=== PATIENT | female | born 1965 | race Caucasian/White ===

== ENCOUNTER 2019-12-07 11:53 | Outpatient (CLI) | payer MEDICARE, MEDICAID, SELFPAY ==
--- NOTE | 2019-12-07 12:08 | MM_ITS ---
WS: [id number] RIGHT DIGITAL MAMMOGRAPHY WITH CAD CLINICAL INFORMATION: LUMP RT BREAST COMPARISON: TECHNIQUE: 4 views of the right breast were obtained. FINDINGS: The right breast is composed of heterogeneous fibroglandular density tissue, which can limit the dete ction of small underlying mass lesions. Lucent centered calcifications. Palpable marker lower inner r ight breast. No mammographic abnormalities in this area. Ultrasound is pending. ULTRASOUND BREAST RIGHT TECHNIQUE: Ultrasound right breast focused area of concern. CLINICAL INFORMATION: LUMP RT BREAST COMPARISON: None. FINDINGS: Ultrasound right breast performed at the 3:00 position 3 cm from the nipple. No evidence of cystic or solid lesion in the area of palpable abnormality. No well-circumscribed lesions. No lesions to targe t for biopsy. Normal underlying breast tissue. MM/[place] [id number] IMPRESSION: BI-RADS: 2-Benign FOLLOW UP: 1 Year Follow-up Recommend return to annual screening mammography. Additional management of the palpable abnormality should be based on clinical g rounds.
== END 2019-12-07 11:54 | disposition home or self-care (01) ==
LOC: RADSHAW 12:03
PROVIDERS: Family Provider Nurse Practitioner Family; PCP Nurse Practitioner Family; Visit Provider Nurse Practitioner Family
DX: N63.14 Unspecified lump in the right breast, lower inner quadrant (principal)
CPT/HCPCS: 76642; 77065

== ENCOUNTER → 2020-01-26 11:08 | Outpatient (BNVA) | payer MEDICARE, MEDICAID, SELFPAY | PROVIDERS: Family Provider Nurse Practitioner Family; PCP Nurse Practitioner Family; Visit Provider Nurse Practitioner Family | DX: E03.8 Other specified hypothyroidism (principal) | CPT/HCPCS: 84443 ==

== ENCOUNTER → 2020-05-25 15:12 | Outpatient (BNVA) | payer MEDICARE, MEDICAID, SELFPAY | PROVIDERS: Family Provider Nurse Practitioner Family; PCP Nurse Practitioner Family; Visit Provider Nurse Practitioner Family | DX: I10 Essential (primary) hypertension (principal); E78.5 Hyperlipidemia, unspecified; E03.9 Hypothyroidism, unspecified; F41.9 Anxiety disorder, unspecified; J44.1 Chronic obstructive pulmonary disease with (acute) exacerbation | CPT/HCPCS: 80053; 80061; 84443; 85025 ==

== ENCOUNTER → 2020-11-28 09:08 | Outpatient (BNVA) | payer MEDICARE, MEDICAID, SELFPAY | PROVIDERS: Family Provider Nurse Practitioner Family; PCP Nurse Practitioner Family; Visit Provider Nurse Practitioner Family | DX: E03.9 Hypothyroidism, unspecified (principal); E78.5 Hyperlipidemia, unspecified; J44.9 Chronic obstructive pulmonary disease, unspecified | CPT/HCPCS: 80053; 80061; 84443; 85025 ==

== ENCOUNTER 2020-12-15 12:28 | Outpatient (CLI) | payer MEDICARE, MEDICAID, SELFPAY ==
[2020-12-15 13:14] LABS: Basophils # 0.2 10^3/uL (0.0-0.1); Basophils % 1.6 %; Eosinophils # 0.4 10^3/uL (0.0-0.8); Eosinophils % 2.8 %; Hematocrit 43.2 % (37.0-47.0); Lymphocytes # 3.7 10^3/uL (0.8-4.8); Lymphocytes % 29.2 %; Mean Corpuscular HGB Conc 34.7 g/dL (30.0-36.0); Mean Corpuscular Hemoglobin 33.7 pg (28.0-34.0); Mean Corpuscular Volume 97.1 fL (81-99); Mean Platelet Volume 9.3 fL (7.4-10.4); Monocytes % 8.2 %; Neutrophils # 7.25 10^3/uL (1.8-7.7); Nucleated Red Blood Cells % 0 %; Platelet Count 307 10^3/cmm (130-400); Red Blood Count 4.45 10^6/uL (4.1-5.3); Red Cell Distribution Width 11.9 % (12.1-15.1); White Blood Count 12.5 10^3/uL (4.0-10.0)
--- NOTE | 2020-12-16 09:22 | ONC CON_ITS ---
Dr. Santoro New Patient Note Patient: Vanessa Jimenez Unit #: [id number]: [id number] Dicatated By: Anna Santoro M.D.Date of Visit: Dec 15, 2020 Onc MED New Patient/Consult Referring Physician: Ayaz Fuentes History of Present Illness: Vanessa Jimenez, is a 55-year-old female with history of off and on elevated white blood count for 'some time' but recently did not improve and her labs checked on November 28, 2020 showed white blood count 14,000 hemoglobin 15.3 hematocrit 44.9 platelets 326,000 with elevated neutrophil count and mild eosinophilia as per patient she has severe COPD and has been taking prednisone 10 to 20 mg p.o. on as-needed basis for the last 3 years and usually end up taking once or twice a week and sometimes a week long course, depending how 'bad 'COPD is. And she is also on steroid-based inhaler Trelegy ( fluticasone) on daily basis. Patient is a chronic smoker, smoke 1 pack a day, also smoke marijuana and consume about 6 beers a day. Also has history of productive cough but no hemoptysis or hematemesis but sometimes postnasal discharge or so-called allergies. Denies any dysuria or hematuria, denies any night sweats, denies any drenching sweating or recurrent fever, denies any weight loss. Denies any abdominal fullness, denies any history of blood disorder in the past, denies any history of [id number] medication or herbs. Past Medical History: Ms. Jimenez's medical history consists of anxiety, chronic obstructive pulmonary disease, cor pulmonale, dyslipidemia, hypertension, hypothyroidism, left bundle branch block, and sleep apnea. Past Surgical History: There is no documented surgical history. Medications: Adult Aspirin EC Low Strength 1 Tablet (of 81 mg) Tablet, enteric coated Oral daily, Albuterol Sulfate HFA Aerosol, solution Inhalation, Cardizem CD 1 Capsule (of 240 mg) Capsule SR 24 HR Oral daily, Furosemide 1 Tablet (of 20 mg) Oral daily, Levothyroxine Sodium 1 Tablet (of 100 mcg) Oral daily, Montelukast Sodium 1 Tablet (of 10 mg) Oral daily, Mucinex Tablet SR 12 HR Oral, Potassium 1 Tablet (of 99 mg) Oral daily, Pravastatin Sodium 1 Tablet (of 20 mg) Oral daily, predniSONE Tablet Oral PRN, Super B Complex Maxi 1 Tablet Oral daily, Trelegy Ellipta Aerosol Powder, Breath Activated Inhalation Allergies: Amoxicillin, EPINEPHrine, and Penicillins. Social History: Ms. Jimenez is single. She is a daily smoker. She drinks daily. Pt states that she smokes a 6-pack of beer daily and smokes marijuana a few times weekly. Family History: There is no documented family history. Review Of Symptoms: Constitutional - Appetite is diminished and weight is stable. No fever or hot flashes. Energy level is fair. Positive for night sweats, ENMT - No sinus congestion/drainage. No mouth sores. No sore throat or difficulty swallowing, Hematologic/Lymphatic - Positive for easy bruising, Respiratory - Positive for shortness of breath and cough. No pleuritic pain or hemoptysis, Cardiovascular - No angina pain. No palpitations, Gastrointestinal - No nausea or vomiting. No heartburn or acid reflux. No diarrhea or constipation. No blood in the stool or black stools, Genitourinary (F) - No dysuria or hematuria. No urinary frequency. No urgency or incontinence, Musculoskeletal - No joint or bone pain, Neurologic - No headache or dizziness. No numbness or tingling. No other focal neurologic symptoms, Psychiatric - Positive for anxiety, no depression. No insomnia. Vital Signs: Performed on Dec 15, 2020 15:15: 0, 20.59, 1.50 sq.m, 62 in, 94 % (LOW), 102 /min (HIGH), 16 /min, 155/89 mm(hg) (HIGH), 98.7 F, and 112.6 lbs (HIGH). Performance Status: 1 - No physically strenuous activity, but ambulatory and able to carry out light or sedentary work (e.g. office work, light house work). (ECOG) Physical Examination: ENMT - No mouth sores, no thrush, no jaundice poor oral hygiene no peripheral lymphadenopathy, Respiratory - Poor air entry with bilateral mild wheezing, Cardiovascular - Regular rate and rhythm of heart, Abdomen - Soft, bowel sounds present, Extremities - No visible edema. Lab/Imaging: Most recent lab results are not available for this patient. Impression: Leukocytosis/neutrophilia etiology unclear but could be due to steroids, patient is on prednisone 10 to 20 mg p.o. once or twice a week for COPD and also on steroid-based inhaler (Trelegy )on regular basis. Or due to chronic inflammation/bronchitis due to chronic smoking or smoking or recurrent subclinical infection, or myeloproliferative disorder but less likely COPD, longstanding history of smoking still active Marijuana consumption Hypothyroidism Hypertension Plan: Discussed with patient regarding her labs white blood count 12.5 thousand, hemoglobin 15 g hematocrit 43.2 platelets 307,000 with a normal differential Clinically, patient is doing well with no signs symptoms suggestive of acute infection but clinically it appears patient has chronic bronchitis with productive white cough, no B symptoms, no peripheral lymphadenopathy or organomegaly. Repeat CBC shows her white blood count has improved and with normal differential and her hemoglobin and platelet count is within normal range Etiology of fluctuating leukocytosis is most likely due to off and on prednisone as well as regular use of steroid-based inhaler, other possibility could be chronic smoking as well as smoking-related chronic bronchitis causing reactive leukocytosis and or underlying myeloproliferative disorder cannot be ruled out but less likely. As her follow-up CBC shows improvement in her isolated leukocytosis and no sign of infections, patient was advised to hold her prednisone 2 weeks prior to her next visit in the month and avoid steroid containing inhaler if possible prior to her next visit and then we will repeat her CBC with differential and if it shows persistent leukocytosis, will consider whole blood flow cytometry to rule out myeloproliferative disorder. Patient was advised to quit smoking and was offered any assistance she may need. Signed By: Anna Santoro M.D. <<Signature on File>>
== END 2020-12-15 12:29 | disposition home or self-care (01) ==
LOC: ONCMED 12:32
PROVIDERS: Family Provider Nurse Practitioner Family; PCP Nurse Practitioner Family; Visit Provider Internal Medicine Hematology & Oncology
DX: D72.89 Other specified disorders of white blood cells (principal); J44.9 Chronic obstructive pulmonary disease, unspecified; F17.210 Nicotine dependence, cigarettes, uncomplicated; F12.90 Cannabis use, unspecified, uncomplicated; Z79.52 Long term (current) use of systemic steroids
CPT/HCPCS: 36415; 85025; 99204

== ENCOUNTER 2021-01-30 08:18 | Outpatient (CLI) | payer MEDICARE, MEDICAID, SELFPAY ==
[2021-01-30 08:51] LABS: Basophils # 0.1 10^3/uL (0.0-0.1); Basophils % 1.5 %; Eosinophils # 0.4 10^3/uL (0.0-0.8); Eosinophils % 4.8 %; Hematocrit 42.2 % (37.0-47.0); Hemoglobin 14.3 g/dL (11.5-15.3); Lymphocytes # 1.7 10^3/uL (0.8-4.8); Lymphocytes % 18.5 %; Mean Corpuscular HGB Conc 33.9 g/dL (30.0-36.0); Mean Corpuscular Hemoglobin 33.9 pg (28.0-34.0); Mean Platelet Volume 9.6 fL (7.4-10.4); Monocytes # 0.8 10^3/uL (0.2-0.9); Monocytes % 8.6 %; Neutrophils # 5.92 10^3/uL (1.8-7.7); Neutrophils % 66.2 %; Nucleated Red Blood Cells % 0 %; Platelet Count 246 10^3/cmm (130-400); Red Blood Count 4.22 10^6/uL (4.1-5.3); Red Cell Distribution Width 11.9 % (12.1-15.1); White Blood Count 8.9 10^3/uL (4.0-10.0)
--- NOTE | 2021-01-30 10:27 | ONC FU_ITS ---
Dr. Santoro follow up note Patient: Vanessa Jimenez Unit #: [id number]: 1965 Dicatated By: Anna Santoro M.D.Date of Visit:Jan 30, 2021 Onc Med Follow-up/Prog Note History of Present Illness: Vanessa Jimenez, is a 55-year-old female with history of off and on elevated white blood count for 'some time' but recently did not improve and her labs checked on November 28, 2020 showed white blood count 14,000 hemoglobin 15.3 hematocrit 44.9 platelets 326,000 with elevated neutrophil count and mild eosinophilia as per patient she has severe COPD and has been taking prednisone 10 to 20 mg p.o. on as-needed basis for the last 3 years and usually end up taking once or twice a week and sometimes a week long course, depending how 'bad 'COPD is. And she is also on steroid-based inhaler Trelegy ( fluticasone) on daily basis. Patient is a chronic smoker, smoke 1 pack a day, also smoke marijuana and consume about 6 beers a day. Also has history of productive cough but no hemoptysis or hematemesis but sometimes postnasal discharge or so-called allergies. Denies any dysuria or hematuria, denies any night sweats, denies any drenching sweating or recurrent fever, denies any weight loss. Denies any abdominal fullness, denies any history of blood disorder in the past, denies any history of ylzq-vco-bvcrjge medication or herbs. Came for follow-up, denies any specific complaints, no fever chills, no nausea or vomiting, no diarrhea or constipation, no sore throat, no sinus problem, no dysuria. As per patient she did not take steroids for last 1 week but this morning 1 dose because of progressive COPD and still smoking regularly. Medications: Adult Aspirin EC Low Strength 1 Tablet (of 81 mg) Tablet, enteric coated Oral daily, Albuterol Sulfate HFA Aerosol, solution Inhalation, Cardizem CD 1 Capsule (of 240 mg) Capsule SR 24 HR Oral daily, Furosemide 1 Tablet (of 20 mg) Oral daily, Levothyroxine Sodium 1 Tablet (of 100 mcg) Oral daily, Montelukast Sodium 1 Tablet (of 10 mg) Oral daily, Mucinex Tablet SR 12 HR Oral, Potassium 1 Tablet (of 99 mg) Oral daily, Pravastatin Sodium 1 Tablet (of 20 mg) Oral daily, predniSONE Tablet Oral PRN, Super B Complex Maxi 1 Tablet Oral daily, Trelegy Ellipta Aerosol Powder, Breath Activated Inhalation Allergies: Amoxicillin, EPINEPHrine, and Penicillins. Review of Systems: Review of Systems is not available for this patient. Vital Signs: Performed on Jan 30, 2021 10:01 Height - 62.00 in Weight - 115.6 lbs (HIGH) BSA - 1.51 sq.m BMI - 21.14 Temperature - 98.9 F (HIGH) Pulse - 79 /min Respiration - 20 /min BP - 146/84 mm(hg) (HIGH) O2 Sat - 96 % Pain - 0 Fatigue - 4 Performance Status: 0 - Fully active, able to carry on all predisease activities without restrictions. (ECOG) Physical Examination: ENMT - No mouth sores, no thrush, no jaundice, Respiratory - Poor air entry , With mild wheezing, Cardiovascular - Regular rate and rhythm of heart, Abdomen - Soft,bowel sounds present, Extremities - No visible edema. Lab/Imaging: Test performed on Dec 15, 2020 12:55 WBC 12.5 10 3/uL RBC 4.45 10 6/uL HGB 15.0 g/dL HCT 43.2 % MCV 97.1 fL MCH 33.7 pg MCHC 34.7 g/dL RDW 11.9 % Platelet Count 307 10 3/cmm MPV 9.3 fL Neutrophils 7.25 10 3/uL Lymphocytes 3.7 10 3/uL Monocytes 1.0 10 3/uL Eosinophils 0.4 10 3/uL Basophils 0.2 10 3/uL Neutrophil % 58.0 % Lymphocyte % 29.2 % Monocyte % 8.2 % Eosinophil % 2.8 % Basophils % 1.6 % NRBC % 0 % Impression: Leukocytosis/neutrophilia etiology unclear but could be due to steroids, patient is on prednisone 10 to 20 mg p.o. once or twice a week for COPD and also on steroid-based inhaler (Trelegy )on regular basis. Or due to chronic inflammation/bronchitis due to chronic smoking or smoking or recurrent subclinical infection, or myeloproliferative disorder but less likely COPD, longstanding history of smoking still active Marijuana consumption Hypothyroidism Hypertension Plan: Discussed with patient regarding her labs white blood count 8.9 hemoglobin 14.3 hematocrit 42.2 platelets 246,000 with a normal differential Clinically, patient is doing well with no new signs symptom suggestive of acute or chronic infection. Her follow-up labs shows resolution of leukocytosis and now CBC is in normal range. Patient was off steroid for the last 1 week except this morning when she took 1 dose of prednisone for COPD. Patient still smoking actively and she was advised to quit smoking and was offered any assistance she may need As far as leukocytosis concern, her follow-up CBC shows no abnormality so we will continue to monitor she return to clinic in 2 months and patient was advised to quit smoking as well as to avoid steroid for 1 week prior to her next visit with CBC with differential, if CBC stays within normal range then we will see her on as-needed basis Signed By: Anna Santoro M.D. <<Signature on File>>
== END 2021-01-30 08:19 | disposition home or self-care (01) ==
LOC: ONCMED 08:23
PROVIDERS: Family Provider Nurse Practitioner Family; PCP Nurse Practitioner Family; Visit Provider Internal Medicine Hematology & Oncology
DX: D72.829 Elevated white blood cell count, unspecified (principal); J44.9 Chronic obstructive pulmonary disease, unspecified; F17.210 Nicotine dependence, cigarettes, uncomplicated; F12.20 Cannabis dependence, uncomplicated; E03.9 Hypothyroidism, unspecified; I10 Essential (primary) hypertension; Z79.52 Long term (current) use of systemic steroids; Z79.899 Other long term (current) drug therapy
CPT/HCPCS: 36415; 85025; G0463

== ENCOUNTER → 2021-05-29 09:37 | Outpatient (BNVA) | payer MEDICARE, MEDICAID, SELFPAY | PROVIDERS: Family Provider Nurse Practitioner Family; PCP Nurse Practitioner Family; Visit Provider Nurse Practitioner Family | DX: I10 Essential (primary) hypertension (principal); E78.5 Hyperlipidemia, unspecified; E03.9 Hypothyroidism, unspecified; J44.9 Chronic obstructive pulmonary disease, unspecified | CPT/HCPCS: 80053; 80061; 84443; 85025 ==

== ENCOUNTER 2021-11-06 14:05 | Outpatient (CLI) | payer MEDICARE, MEDICAID, SELFPAY ==
--- NOTE | 2021-11-06 14:19 | CT_ITS ---
WS: [id number] LDCT LUNG CANCER SCREENING HISTORY: Nicotine Dependence TECHNIQUE: Axial imaging performed from the apices to 1 cm below the costophrenic angles. Coronal and sagittal reformats are submitted with axial MIP series. All CT scans at [facility] use at least one of these dose optimization techniques: automated exposure control; mA and/or kV adjustment per patient size (includes targeted exams where dose is matched to clinical indication); or iterativ e reconstruction. DLP: 54.19 mGy.cm DIvol: 1.58 mGy COMPARISON: 03/26/2019 and 01/09/2016 Diagnostic quality: Satisfactory Lung Nodules: LEFT upper lobe slightly spiculated noncalcified soft tissue nodule measures 7 mm in di ameter. This nodule was not present on 03/26/2019. No additional nodule or endobronchial lesion. Lungs: Pulmonary hyperexpansion from emphysema. Heart: Mildly enlarged heart. Other findings: Mildly prominent pulmonary artery. Atherosclerosis aorta. Thoracic scoliosis. CT/CT lung screening [id number] IMPRESSION: LUNG-RADS: 4A-Probably Suspicious FOLLOW UP: 3 Month LDCT OTHER FINDINGS (S MODIFIER): None.
== END 2021-11-06 14:06 | disposition home or self-care (01) ==
LOC: RAD 14:11
PROVIDERS: PCP Nurse Practitioner Family; Visit Provider Internal Medicine Critical Care Medicine
DX: Z12.2 Encounter for screening for malignant neoplasm of respiratory organs (principal); F17.210 Nicotine dependence, cigarettes, uncomplicated; I70.0 Atherosclerosis of aorta; M41.84 Other forms of scoliosis, thoracic region
CPT/HCPCS: 71271

== ENCOUNTER → 2021-11-28 15:39 | Outpatient (BNVA) | payer MEDICARE, MEDICAID, SELFPAY | PROVIDERS: PCP Nurse Practitioner Family; Visit Provider Nurse Practitioner Family | DX: J44.9 Chronic obstructive pulmonary disease, unspecified (principal); I10 Essential (primary) hypertension | CPT/HCPCS: 80053; 80061; 84443; 85025 ==

== ENCOUNTER 2022-02-05 09:36 | Outpatient (CLI) | payer MEDICARE, MEDICAID, SELFPAY ==
--- NOTE | 2022-02-05 10:30 | CT_ITS ---
WS: [id number] CT CHEST WITHOUT INTRAVENOUS CONTRAST HISTORY: f/u lung nodule TECHNIQUE: Contiguous 5 mm axial imaging performed on the thorax. Coronal and sagittal reformats are submitted. All CT scans at [facility] use at least one of these dose optimization techniques: automated exposure control; mA and/or kV adjustment per patient size (includes targeted exams where dose is matched to clinical indication); or iterative reconstruction. CONTRAST: None DLP: 321.22 mGy.cm COMPARISON: 11/06/2021 Lungs and central airway: Hyperinflated lungs from emphysema. Again noted is a slightly spiculated ro und nodule LEFT upper lobe measuring 7 mm. No increase in size since 11/06/2021. Spiculations are less apparent due to volume averaging. Benign calcifications RIGHT apex. No pneumonia. Pleura: Normal. No pleural effusion. Heart and pericardium: Normal size heart with no pericardial effusion. Mediastinum and kasia: No mediastinum or hilar adenopathy. Vessels: Mild atherosclerosis aorta. Pulmonary artery size is equal to the aorta. Chest wall and lower neck: No soft tissue masses. Upper abdomen: Negative. Osseous structures: No destructive process. CT/CT chest wo con [id number] IMPRESSION: 1. No change in a 7 mm nodule LEFT upper lobe as described on 11/06/2021. Mary nued close CT follow-up recommended as this is indeterminate but suspicious for early neoplasm. 2. No adenopathy. 3. Emphysema.
== END 2022-02-05 09:37 | disposition home or self-care (01) ==
PROVIDERS: PCP Nurse Practitioner Family; Visit Provider Internal Medicine Critical Care Medicine
DX: R91.1 Solitary pulmonary nodule (principal); J43.9 Emphysema, unspecified
CPT/HCPCS: 71250

== ENCOUNTER → 2022-02-08 14:05 | Outpatient (BNVA) | payer MEDICARE, MEDICAID, SELFPAY | PROVIDERS: PCP Nurse Practitioner Family; Visit Provider Internal Medicine Critical Care Medicine | DX: J44.9 Chronic obstructive pulmonary disease, unspecified (principal); R91.1 Solitary pulmonary nodule; F17.210 Nicotine dependence, cigarettes, uncomplicated | CPT/HCPCS: 99214 ==

== ENCOUNTER → 2022-05-31 10:57 | Outpatient (BNVA) | payer MEDICARE, MEDICAID, SELFPAY | PROVIDERS: PCP Nurse Practitioner Family; Visit Provider Nurse Practitioner Family | DX: E78.5 Hyperlipidemia, unspecified (principal); E03.9 Hypothyroidism, unspecified | CPT/HCPCS: 80053; 80061; 84443; 85025 ==

== ENCOUNTER → 2022-08-23 09:47 | Outpatient (BNVA) | payer MEDICARE, MEDICAID, SELFPAY | PROVIDERS: PCP Nurse Practitioner Family; Visit Provider Internal Medicine Critical Care Medicine | DX: J44.1 Chronic obstructive pulmonary disease with (acute) exacerbation (principal); R91.1 Solitary pulmonary nodule; F17.210 Nicotine dependence, cigarettes, uncomplicated; F41.1 Generalized anxiety disorder | CPT/HCPCS: 99214 ==

== ENCOUNTER 2022-09-05 15:01 | Outpatient (CLI) | payer MEDICARE, MEDICAID, SELFPAY ==
--- NOTE | 2022-09-05 15:30 | CT_ITS ---
WS: [id number] CT CHEST TECHNIQUE: Noncontrast CT of the chest with coronal and sagittal reformatted images. CLINICAL INFORMATION: Lung nodule COMPARISON: 02/05/22 DLP: 403.[address] scans at [facility] use at least one of these dose optimization techniques: automated e xposure control; mA and/or kV adjustment per patient size (includes targeted exams where dose is matc hed to clinical indication); or iterative reconstruction. FINDINGS: Previously described 7 mm nodule LEFT upper lobe is unchanged. Advanced chronic emphysematous changes . No acute pulmonary infiltrates. No focal pneumonia or pleural fluid. Normal caliber thoracic aorta. No mediastinal or hilar lymphadenopathy. No axillary lymphadenopathy. CT/CT chest wo con [id number] IMPRESSION: 1. Previously described 7 mm nodule LEFT upper lobe is unchanged since and 11/06/2021. Recommend 6 month follow-up. 2. Advanced chronic emphysematous changes. 3. No significant interval changes compared to previous.
== END 2022-09-05 15:02 | disposition home or self-care (01) ==
LOC: RAD 15:01
PROVIDERS: PCP Nurse Practitioner Family; Visit Provider Internal Medicine Critical Care Medicine
DX: R91.1 Solitary pulmonary nodule (principal); J43.9 Emphysema, unspecified
CPT/HCPCS: 71250

== ENCOUNTER → 2022-09-17 12:04 | Outpatient (BNVA) | payer MEDICARE, MEDICAID, SELFPAY | PROVIDERS: PCP Nurse Practitioner Family; Visit Provider Nurse Practitioner Family | DX: J44.1 Chronic obstructive pulmonary disease with (acute) exacerbation (principal) | CPT/HCPCS: 80053 ==

== ENCOUNTER → 2022-09-18 10:58 | Outpatient (BNVA) | payer MEDICARE, MEDICAID, SELFPAY | PROVIDERS: PCP Nurse Practitioner Family; Visit Provider Nurse Practitioner Family | DX: J44.1 Chronic obstructive pulmonary disease with (acute) exacerbation (principal) | CPT/HCPCS: 71046 ==

== ENCOUNTER → 2022-11-30 11:22 | Outpatient (BNVA) | payer MEDICARE, MEDICAID, SELFPAY | PROVIDERS: PCP Nurse Practitioner Family; Visit Provider Nurse Practitioner Family | DX: E78.5 Hyperlipidemia, unspecified (principal); J44.9 Chronic obstructive pulmonary disease, unspecified; I10 Essential (primary) hypertension; E03.9 Hypothyroidism, unspecified; Z23 Encounter for immunization; R91.1 Solitary pulmonary nodule | CPT/HCPCS: 80053; 80061; 84443; 85025 ==

== ENCOUNTER → 2022-12-11 12:03 | Outpatient (BNVA) | payer MEDICARE, MEDICAID, SELFPAY | PROVIDERS: PCP Nurse Practitioner Family; Visit Provider Internal Medicine Cardiovascular Disease | DX: J44.1 Chronic obstructive pulmonary disease with (acute) exacerbation (principal); R91.1 Solitary pulmonary nodule; F17.210 Nicotine dependence, cigarettes, uncomplicated; E78.5 Hyperlipidemia, unspecified; I10 Essential (primary) hypertension; G47.30 Sleep apnea, unspecified; I44.7 Left bundle-branch block, unspecified; I27.81 Cor pulmonale (chronic) | CPT/HCPCS: 99213 ==

== ENCOUNTER → 2023-02-25 10:37 | Outpatient (BNVA) | payer MEDICARE, MEDICAID, SELFPAY | PROVIDERS: PCP Nurse Practitioner Family; Visit Provider Internal Medicine Pulmonary Disease | DX: J44.9 Chronic obstructive pulmonary disease, unspecified (principal); R91.1 Solitary pulmonary nodule; F17.210 Nicotine dependence, cigarettes, uncomplicated; F41.1 Generalized anxiety disorder; Z79.52 Long term (current) use of systemic steroids | CPT/HCPCS: 99214 ==

== ENCOUNTER 2023-04-17 11:55 | Outpatient (CLI) | payer MEDICARE, MEDICAID, SELFPAY ==
--- NOTE | 2023-04-17 12:00 | CT_ITS ---
WS: [id number] CT chest wo con [id number] HISTORY: follow up lung nodule TECHNIQUE: Axial imaging performed through the thorax. Coronal and sagittal reformats are submitted. [facility] one of these dose optimization techniques: automated exposure control; mA and/or kV adjustment per patient size (includes targeted exams where dose is mat ched to clinical indication); or iterative reconstruction. CONTRAST: None DLP: 162.71 mGy.cm COMPARISON: 09/05/2022, 11/06/2021 Lungs and central airway: Moderate to severe hyperexpansion and chronic emphysema. Previously describ ed 6 mm nodule is reidentified in the LEFT upper lobe without interval change. There is a new spicula marni nodule with cavitation measuring 12 x 9 mm in the LEFT upper lobe. Short segment scar RIGHT upper lobe. Pleura: Normal. No pleural effusion. Heart and pericardium: Normal size heart with no pericardial effusion. Mediastinum and kasia: No mediastinum or hilar adenopathy. Vessels: Normal size aortic and pulmonary artery. No coronary artery calcifications. Chest wall and lower neck: No soft tissue masses. Upper abdomen: Small hiatal hernia. Scattered calcifications suprarenal aorta. Osseous structures: Increase in thoracic kyphosis. CT/CT chest wo con [id number] IMPRESSION: 1. New spiculated nodule with central cavitation measuring 12 x 9 mm in the LE FT upper lobe. Recommend short-term chest CT follow-up(3 months) versus PET CT imaging. 2. Previously described 6 mm noncalcified nodule LEFT upper lobe is stable sin ce 11/06/2021. 3. Severe chronic emphysema.
== END 2023-04-17 11:56 | disposition home or self-care (01) ==
LOC: RAD 12:01
PROVIDERS: PCP Nurse Practitioner Family; Visit Provider Internal Medicine Pulmonary Disease
DX: R91.1 Solitary pulmonary nodule (principal); F17.210 Nicotine dependence, cigarettes, uncomplicated; J43.9 Emphysema, unspecified
CPT/HCPCS: 71250

== ENCOUNTER 2023-05-18 05:48 | Outpatient (CLI) | payer MEDICARE, MEDICAID, SELFPAY ==
--- NOTE | 2023-05-18 10:00 | PETR_ITS ---
PROCEDURE INFORMATION: Exam: PET/CT Skull Base to Mid-thigh Exam date and time: 05/18/2023 10:20 AM Age: 58 years old Clinical indication: Abnormal findings; New spiculated nodule with central cavitation measuring 12 x 9 mm in the left upper lobe. Recommend short-term chest CT follow-up(3 months) versus pet CT imaging. ; Additional info: Lung nodule f/u lung cancer screening LABS AND CLINICAL REPORTS: Glucose: 106 mg/dl Treatment strategy for malignancy (PET staging): Initial Staging (PI) TECHNIQUE: Imaging protocol: Following at least four-hour fasting and following the injection of radiopharmaceutical, low dose CT images were obtained. Then, PET images were obtained. Attenuation corrected images were constructed using the CT scan. Fused images of PET and CT were reviewed. The standardized uptake values (SUV) reported below are maximum values within a region of interest, expressed in gm/ml. Exam includes orbital meatal line to mid-thigh. Radiopharmaceutical: 16.12 mCi F-18 FDG (Fluorodeoxyglucose), IV. Time of imaging post radiopharmaceutical administration: 1 hour Injection site: Left antecubital COMPARISON: CT chest con [id number] 04/17/2023 12:26 PM, CT chest 09/05/2022 FINDINGS: Brain: Visualized brain has normal physiologic uptake. Pharynx: No abnormal uptake. Larynx: No abnormal uptake. Lungs, pleura and trachea: A solid noncalcified slightly spiculated ovoid nodule in the left upper lobe measures 1.0 x 0.8 cm on series 3, image 38 without elevated uptake, SUV max 1.5. This nodule appears similar in size compared with 04/17/2023 however it no longer appears centrally necrotic. Similar solid anterior left upper lobe noncalcified 4 mm nodule on series 3, image 47. Similar right apical linear scarring. Diffuse moderate centrilobular emphysematous changes are noted. Heart: Normal physiologic uptake. Mediastinal space: No abnormal uptake. Liver: No abnormal uptake. Gallbladder and bile ducts: No abnormal uptake. Pancreas: No abnormal uptake. Spleen: No abnormal uptake. Adrenal glands: No abnormal uptake. Kidneys and ureters: Mild hydronephrosis is present on the right, and there is a suggestion of a lobulated region of abnormal soft tissue density involving the region of the right renal pelvis on series 3, image 92 measuring 2.5 x 2.3 cm. Uptake in this region is similar to that of adjacent urine within the intrarenal collecting system, SUV max 42.3. Stomach and bowel: A small rounded, approximately 1 cm diameter focus of elevated uptake is identified along the right lateral aspect of the distal sigmoid colon on series 4, image 125, SUV max 8.1, with the 2nd focus of more proximally located sigmoid colonic uptake on series 4, image 128, SUV max 5.0. No definite correlating lesions on the CT images are noted.There are scattered colonic diverticula. Vasculature: No abnormal uptake. Diffuse atherosclerotic changes are noted including within the coronary arteries. Lymph nodes: No abnormal uptake. No lymphadenopathy in the head, neck, chest, abdomen, pelvis, and extremities. Bones/joints: No abnormal uptake in the visualized axial and appendicular skeleton. There is mild diffuse vertebral body spondylosis. Soft tissues: No abnormal uptake in the visualized head, neck, chest, abdomen, pelvis, and extremities. METRICS: Mediastinal blood pool: SUV max 1.6 PET/[facility] INITIAL [id number] IMPRESSION: 1. A slightly spiculated solid nodule in the left upper lobe appears similar in size with interval resolution of central necrosis compared with 04/17/2023. Lack of uptake within this nodule favors a benign etiology. Consider 3 month follow-up CT for further surveillance. 2. Unchanged solid 4 mm left upper lobe nodule. 3. Centrilobular emphysematous changes. 4. Mild right hydronephrosis is noted, associated with a region of soft tissue density in the region of the right renal pelvis which demonstrates activity similar to that of adjacent urine in the intrarenal collecting system. Assessment of this region and the renal parenchyma is limited by PET-CT. The possibility of a neoplastic mass in this location or hyperdense of blood products or proteinaceous material in this region cannot be excluded. Consider dedicated multiphasic CT urography versus renal MRI with and without contrast for further evaluation. 5. Small foci of uptake in the sigmoid colon are noted which may be physiologic in nature although localized areas of inflammatory, infectious or neoplastic involvement cannot be excluded. 6. Colonic diverticulosis. 7. Additional nonurgent findings as detailed above.
== END 2023-05-18 05:49 | disposition home or self-care (01) ==
LOC: RAD 05-20 05:48
PROVIDERS: PCP Nurse Practitioner Family; Visit Provider Internal Medicine Pulmonary Disease
DX: Z12.2 Encounter for screening for malignant neoplasm of respiratory organs (principal); R91.1 Solitary pulmonary nodule; J44.1 Chronic obstructive pulmonary disease with (acute) exacerbation; N13.30 Unspecified hydronephrosis; N28.89 Other specified disorders of kidney and ureter; K57.30 Diverticulosis of large intestine without perforation or abscess without bleeding
CPT/HCPCS: 78815; A9552

== ENCOUNTER → 2023-06-07 11:52 | Outpatient (BNVA) | payer MEDICARE, MEDICAID, SELFPAY | PROVIDERS: PCP Nurse Practitioner Family; Visit Provider Nurse Practitioner Family | DX: E03.9 Hypothyroidism, unspecified (principal); F41.9 Anxiety disorder, unspecified; E78.5 Hyperlipidemia, unspecified; I10 Essential (primary) hypertension; J44.9 Chronic obstructive pulmonary disease, unspecified; J44.1 Chronic obstructive pulmonary disease with (acute) exacerbation; Z12.31 Encounter for screening mammogram for malignant neoplasm of breast; Z13.820 Encounter for screening for osteoporosis; Z23 Encounter for immunization | CPT/HCPCS: 80053; 80061; 84443 ==

== ENCOUNTER 2023-06-20 13:18 | Outpatient (CLI) | payer MEDICARE, MEDICAID, SELFPAY ==
--- NOTE | 2023-06-20 13:44 | XR_ITS ---
WS: [id number] DEXA (DUAL ENERGY X-RAY ABSORPTIOMETRY) Bone mineral density was performed using a [employer] machine. HISTORY: SCREENING COMPARISON: None available. Lumbar spine BMD (L1-L4): 0.878 g/cm2 T score: -2.5 Z score: -0.6 Total hip BMD: Left: 0.625 g/cm2. T score: -3.0 Z score: -1.6 Right: 0.609 g/cm2. T score: -3.2 Z score: -1.7 10 year probability of a major osteoporotic fracture is 32.2%. XR/XR DEXA axial skeleton* [id number] IMPRESSION: OSTEOPOROSIS based upon the WHO classification for females.
--- NOTE | 2023-06-20 13:45 | MM_ITS ---
WS: [id number] VIEWS: MLO and CC views both breasts. 3D digital tomosynthesis is also included in this exam. Comparison made with prior exam of 01/04/2014. A 09/20/2015. 12/27/2017. 05/19/2019. 12/07/2019.. Findings: There was no sign of mass, architectural distortion or suspicious calcification in either breast. Th e breasts are extremely dense which lowers the sensitivity of mammography. MM/[place] [id number] Impression: BI-RADS: 2-Benign finding. FOLLOW-UP: 1 Year Follow-up This mammogram was also analyzed by the Computer Aided Detection System R2 Imag e Contour Path Tape Mill Operator.
== END 2023-06-20 13:19 | disposition home or self-care (01) ==
LOC: RAD 13:20
PROVIDERS: PCP Nurse Practitioner Family; Visit Provider Nurse Practitioner Family
DX: Z12.31 Encounter for screening mammogram for malignant neoplasm of breast (principal); Z13.820 Encounter for screening for osteoporosis; M81.0 Age-related osteoporosis without current pathological fracture
CPT/HCPCS: 77063; 77067; 77080

== ENCOUNTER 2023-08-02 11:33 | Outpatient (CLI) | payer MEDICARE, MEDICAID, SELFPAY ==
--- NOTE | 2023-08-02 12:00 | CT_ITS ---
WS: [id number] CT chest wo con [id number] HISTORY: lung nodule TECHNIQUE: Axial imaging performed through the thorax. Coronal and sagittal reformats are submitted. All CT scans at [facility] use at least one of these dose optimization techniques: automated exposure control; mA and/or kV adjustment per patient size (includes targeted exams where dose is mat ched to clinical indication); or iterative reconstruction. CONTRAST: None DLP: 160.90 mGy.cm COMPARISON: 04/17/2023 and 09/05/2022 Lungs and central airway: Severe centrilobular emphysema. New subsolid opacification in the RIGHT upp er lobe extends towards the hilum. There is bronchial wall thickening and mild bronchiectasis. These findings are new since 04/17/2023. Previously described cavitary nodule in the central LEFT upper lobe measures 8.2 mm. Nodule is less cavitary and more solid than on the prior study. Stable 5 mm LEFT up per lobe nodule. Pleura: Normal. No pleural effusion. Heart and pericardium: Normal size heart with no pericardial effusion. Mediastinum and kasia: No adenopathy identified on this examination without IV contrast. Vessels: Mild atherosclerosis aorta. Normal sized pulmonary artery. Chest wall and lower neck: No soft tissue masses. Upper abdomen: Suprarenal atherosclerotic plaque within the aorta. Osseous structures: Mild increase in thoracic kyphosis. IMPRESSION: 1. New subsolid consolidation involving the RIGHT upper lobe. Bronchial wall thickening with bronchie ctasis is now present in the RIGHT upper lobe. This is most consistent with acute pneumonia. 2. Cavitary nodule previously described in the LEFT upper lobe has become more consolidated now measu ring 8.2 mm. Recommend continued close imaging evaluation. Neoplasm is not excluded. Follow-up chest CT in 3 months. 3. Stable 5 mm nodule LEFT upper lobe. 4. Severe centrilobular emphysema.
== END 2023-08-02 11:34 | disposition home or self-care (01) ==
PROVIDERS: PCP Nurse Practitioner Family; Visit Provider Internal Medicine Pulmonary Disease
DX: R91.8 Other nonspecific abnormal finding of lung field (principal); J43.2 Centrilobular emphysema
CPT/HCPCS: 71250

== ENCOUNTER → 2023-12-11 14:16 | Outpatient (BNVA) | payer MEDICARE, MEDICAID, SELFPAY | PROVIDERS: PCP Nurse Practitioner Family; Visit Provider Nurse Practitioner Family | DX: E78.5 Hyperlipidemia, unspecified (principal); E03.9 Hypothyroidism, unspecified; I10 Essential (primary) hypertension; J44.9 Chronic obstructive pulmonary disease, unspecified; J44.1 Chronic obstructive pulmonary disease with (acute) exacerbation; M81.0 Age-related osteoporosis without current pathological fracture | CPT/HCPCS: 80053; 80061; 84443; 85025 ==

== ENCOUNTER → 2023-12-31 10:45 | Outpatient (BNVA) | payer MEDICARE, MEDICAID, SELFPAY | PROVIDERS: PCP Nurse Practitioner Family; Visit Provider Nurse Practitioner Family | DX: J44.1 Chronic obstructive pulmonary disease with (acute) exacerbation (principal); D64.9 Anemia, unspecified | CPT/HCPCS: 82607; 82746; 85025 ==

== ENCOUNTER → 2024-06-12 10:43 | Outpatient (BNVA) | payer MEDICARE, MEDICAID, SELFPAY | PROVIDERS: PCP Nurse Practitioner Family; Visit Provider Nurse Practitioner Family | DX: E78.5 Hyperlipidemia, unspecified (principal); J44.9 Chronic obstructive pulmonary disease, unspecified | CPT/HCPCS: 80053; 80061; 84443; 85025 ==

== ENCOUNTER 2024-07-14 13:33 | Outpatient (CLI) | payer MEDICARE, MEDICAID, SELFPAY ==
--- NOTE | 2024-07-14 13:40 | MM_ITS ---
WS: [id number] BILATERAL 3D TOMOSYNTHESIS DIGITAL SCREENING MAMMOGRAM WITH CAD CLINICAL INFORMATION: Z12.39 - Encounter for other screening for malignant neop... HISTORY: Screening mammogram. No current complaints. COMPARISON: 2022 TECHNIQUE: Bilateral CC and MLO. FINDINGS: The breast are composed of extremely dense tissue, which can limit the detection of small underlying mass lesions. No suspicious focal mass, asymmetry, calcifications, or architectural distortion. No ev idence of malignancy. Incidental punctate and lucent centered calcifications. MM/[place] [id number] IMPRESSION: BI-RADS: 2-Benign FOLLOW UP: 1 Year Follow-up Recommend return to annual screening mammography.
== END 2024-07-14 13:34 | disposition home or self-care (01) ==
LOC: MOBLMAM 13:39
PROVIDERS: PCP Nurse Practitioner Family; Visit Provider Nurse Practitioner Family
DX: Z12.31 Encounter for screening mammogram for malignant neoplasm of breast (principal); R92.343 Mammographic extreme density, bilateral breasts
CPT/HCPCS: 77063; 77067; 82607; 82746

== ENCOUNTER 2024-11-26 13:16 | Inpatient (IN) | payer MEDICARE, MEDICAID, SELFPAY ==
[2024-11-26] VITALS (12 sets, daily range): BP systolic 113–133; BP diastolic 70–87; PULSE 80–109; RESP 16–28; TEMP 36.7–36.9; O2SAT 93–99; BMI 15.3
--- NOTE | 2024-11-26 13:23 | XRR_ITS ---
PROCEDURE INFORMATION: Exam: XR Chest Exam date and time: 11/26/2024 2:01 PM Age: 59 years old Clinical indication: Shortness of breath; Additional info: SOB TECHNIQUE: Imaging protocol: Radiologic exam of the chest. Views: 1 view. COMPARISON: CT chest con [id number] 08/02/2023 12:05 PM FINDINGS: Lungs: Emphysematous change with mild interstitial scarring and particularly right upper lobe. No consolidation. Pleural spaces: No pleural effusion or pneumothorax. Heart/Mediastinum: No significant cardiomegaly. Bones/joints: Visualized osseous structures show no acute abnormality. XR/XR chest 1V portable [id number] IMPRESSION: Emphysematous change with mild scarring, and particularly right upper lobe.
--- NOTE | 2024-11-26 13:31 | ECG_ITS ---
[employer] Test Date: 2024-11-26 Pat Name: Vanessa Jimenez Department: Room: Gender: Female Av Specialist: : 1965 Requested By: Antonio Mercedes Order Number: [id number] Catherine MD: Brock Godinez M.D. Measurements Intervals [place] Rate: 108 P: 85 CA: 188 QRS: 85 QRSD: 142 T: 265 QT: 356 QTc: 479 Interpretive Statements SINUS TACHYCARDIA WITH OCCASIONAL SUPRAVENTRICULAR PREMATURE COMPLEXES POSSIBLE RIGHT ATRIAL ENLARGEMENT [0.25mV P-WAVE] LEFT BUNDLE BRANCH BLOCK [120+ ms QRS DURATION, 80+ ms Q/S IN V1/V2, 85+ ms R IN I/aVL/V5/V6] No previous ECG available for comparison Electronically Signed On 11-27-2024 18:32:35 SEPTIC TANK INSTALLER by Brock Godinez M.D. [id number]
[2024-11-26 14:08] LABS: Basophils % 0.3 %; Eosinophils % 0.3 %; Hematocrit 41.3 % (36-47); Lymphocytes # 1.4 10^3/uL (0.8-4.8); Lymphocytes % 11.6 %; Mean Corpuscular HGB Conc 33.7 g/dL (30-55); Mean Corpuscular Hemoglobin 34.1 pg (27-33); Mean Corpuscular Volume 101.2 fl (85-98); Mean Platelet Volume 9.2 fL (7.4-10.4); Monocytes # 1.1 10^3/uL (0.2-0.9); Monocytes % 9.4 %; Neutrophils # 9.12 10^3/uL (1.8-7.7); Neutrophils % 77.9 %; Nucleated Red Blood Cells % 0 %; Platelet Count 312 10^3/cmm (157-399); Red Blood Count 4.08 10^6/uL (3.85-5.65); Red Cell Distribution Width 11.2 % (12.1-15.1); White Blood Count 11.72 10^3/uL (3.29-11.43)
[2024-11-26 14:34] LABS: Troponin(5th) Baseline 9 ng/L (0-10)
[2024-11-26 14:36] LABS: Alanine Aminotransferase 22 U/L (0-33); Albumin Level 3.6 g/dL (3.5-5.2); Alkaline Phosphatase 77 U/L (35-105); Anion Gap 15.2 (5-19); Aspartate Amino Transferase 29 U/L (0-32); Blood Urea Nitrogen 7 mg/dL (8-23); Calcium 9.2 mg/dL (8.5-10.5); Carbon Dioxide 34 mmol/L (22-29); Chloride 92 mmol/L (98-107); Creatinine Clr Calc Pharmacy 89.9631; Glomerular Filtration Rate 162.8 mL/min (90-130); Glucose 116 mg/dL (65-115); NT Pro B Type Natriuretic Pept 462 pg/mL (0-125); Osmolality Calculated 285 mOsm/kg (285-295); Potassium 3.2 mmol/L (3.5-5.1); Sodium 138 mmol/L (136-145); Total Bilirubin 0.2 mg/dL (0.15-1.2); Total Protein 6.6 g/dL (6.6-8.7)
[2024-11-26 14:41] LABS: Influenza A NEGATIVE (Negative); Influenza B NEGATIVE (Negative); Respiratory Syncytial Virus Ce NEGATIVE (Negative)
[2024-11-26 14:46] LABS: Covid PCR Positive (Negative)
[2024-11-26 14:52] LABS: Slide Review Slide Review Perform
[2024-11-26] MEDS: methylPREDNISolone sod succ 125 mg/2 mL INJ IVP (15:05)
--- NOTE | 2024-11-26 15:31 | ECG_ITS ---
[employer] Test Date: 2024-11-26 Pat Name: Vanessa Jimenez Department: Room: Gender: Female International Exchange Coordinator: : 1965 Requested By: Antonio Mercedes Order Number: [id number] Catherine MD: Brock Godinez M.D. Measurements Intervals [place] Rate: 84 P: 77 [place]: 180 QRS: 71 QRSD: 162 T: 46 QT: 415 QTc: 493 Interpretive Statements SINUS RHYTHM LEFT BUNDLE BRANCH BLOCK [120+ ms QRS DURATION, 80+ ms Q/S IN V1/V2, 85+ ms R IN I/aVL/V5/V6] Compared to ECG 11/26/2024 13:26:42 Sinus tachycardia no longer present Electronically Signed On 11-27-2024 18:39:54 SHOP SUPERINTENDENT by Brock Godinez M.D. [id number]
[2024-11-26] MEDS: potassium chloride ER 20 mEq Tablet 40 MEQ PO (15:57)
[2024-11-26 16:05] LABS: D Dimer 0.81 ug/mLFEU (0-0.59)
--- NOTE | 2024-11-26 16:08 | CTR_ITS ---
PROCEDURE INFORMATION: Exam: CTA Chest With Contrast Exam date and time: 11/26/2024 4:23 PM Age: 59 years old Clinical indication: Shortness of breath; Additional info: SOB TECHNIQUE: Imaging protocol: Computed tomographic angiography of the chest with contrast. Exam focused on the arteries. 3D rendering (Not supervised by radiologist): MIP and/or 3D reconstructed images were created by the technologist. Radiation optimization: All CT scans at this facility use at least one of these dose optimization techniques: automated exposure control; mA and/or kV adjustment per patient size (includes targeted exams where dose is matched to clinical indication); or iterative reconstruction. Contrast material: OMNIPAQUE 350; Contrast volume: 75 ml; Contrast route: INTRAVENOUS (IV); COMPARISON: CT angio chest PE protcl [id number] 12/01/2018 6:50 PM RADIATION DOSE METRICS: Total DLP (mGy-cm): 114.94 FINDINGS: Pulmonary arteries: No hypodense filling defect is seen within the pulmonary arteries or their branches to indicate pulmonary embolus. Aorta: Mild arteriosclerosis of the thoracic aorta without findings to indicate dissection or aneurysm. Lungs: Lung windows demonstrate emphysematous change with mild interstitial scarring bilaterally. An area of linear type opacity is seen right upper lobe with component of partial calcification with interval improvement in subsolid opacification in the right upper lobe from 2022 exam otherwise. Residual component of bronchial wall thickening and bronchiectasis. Significant interval decrease in size or improvement in left upper lobe nodule with prior exam of 2022 also suggested. Mild ill-defined focal opacity within the posterior mid to lower right lung is seen on the lung windows, new from 3 exam, as is small amount of ground-glass opacity within the posterior lower left lung. Consider superimposed infiltrate and follow-up with treatment, particularly mid to lower right lung. Pleural spaces: No pleural effusion or pneumothorax. Heart: No significant cardiomegaly. No pericardial effusion. Mild coronary artery calcification. Lymph nodes: Unremarkable. No enlarged lymph nodes. Bones/joints: Bone windows demonstrate mild spondylotic change thoracic spine. Soft tissues: Unremarkable. CT/CT angio chest PE protcl [id number] IMPRESSION: 1. No CT findings of pulmonary embolus. 2. Mild arteriosclerosis thoracic aorta and mild coronary artery calcification. 3. Emphysematous change with mild interstitial scarring and component of bronchial wall thickening/bronchiectasis. Predominant linear type scarring right upper lobe with interval decrease and improvement in subsolid opacification in the right upper lobe from 2022 exam. Significant interval decrease in size or improvement in left upper lobe nodule from prior exam as well. 4. Mild ill-defined focal opacity posterior mid to lower right lung and small amount of ground-glass opacity posterior lower left lung. Consider superimposed infiltrate and consider follow-up with treatment, particularly mid to lower right lung. COMMENTS: The presence of pulmonary emphysema on CT is an independent risk factor for lung cancer. In the absence of a history or active diagnosis of lung cancer, it is recommended that this patient with emphysema be evaluated for enrollment in a low dose CT lung cancer screening program.
--- NOTE | 2024-11-26 16:35 | ED_ITS ---
HPI - SOB/Dyspnea 2 General: Chief Complaint: Shortness of Breath/Dyspnea Stated Complaint: sob, low o2 Time Seen by Provider: 11/26/24 13:52 History of Present Illness: HPI Narrative: 59-year-old female with past medical his tory of COPD, uses supplemental O2 only at night He is presenting with 1 week history of shortness of breath, cough productive but unable to bring any mucus up, generalized weakness body aches no srinivas fever. Patient denies chest pain. No abdominal pain vomiting or diarrhea. Her is sick as well and he has recovered however she persistently is short of breath despite her albuterol treatments at home. Associated symptoms: Reports chest congestion; Deny abdominal pain, chest pain, extremity pain, fever(s), nausea, palpitations or vomiting Related Data Home Medications Medication Instructions Recorded Confirmed aspirin 81 mg tablet,delayed 81 mg PO DAILY 09/08/20 11/26/24 release (Adult Aspirin Regimen) B-complex with vitamin C 1 cap PO DAILY 12/11/22 11/26/24 guaifenesin 600 mg tablet, 600 mg PO BID PRN Cough 12/11/22 11/26/24 extended release 12 hr (Mucinex) albuterol sulfate 90 mcg/actuation 2 puff inhalation QID 11/26/24 11/26/24 aerosol inhaler (Ventolin HFA) Previous Rx's Medication Instructions Recorded diltiazem HCl 240 mg capsule,24 240 mg PO DAILY 30 days #30 caps 06/12/24 hr,extended release fluticasone fur. 100 mcg-umeclid 1 inh inhalation DAILY 30 days #28 06/12/24 62.5 mcg-vilant 25 mcg ea inhalat.powder (Trelegy Ellipta) furosemide 20 mg tablet 20 mg PO DAILY 30 days #30 tabs 06/12/24 ipratropium 0.5 mg-albuterol 3 mg 3 ml inhalation Q4H PRN wheezing 06/12/24 (2.5 mg base)/3 mL nebulization #180 mL soln levothyroxine 100 mcg tablet 100 mcg PO DAILY 30 days #30 tabs 06/12/24 (Synthroid) montelukast 10 mg tablet 10 mg PO DAILY 30 days #30 tabs 06/12/24 pravastatin 20 mg tablet 20 mg PO DAILY 30 days #30 tabs 07/12/24 raloxifene 60 mg tablet (Evista) 60 mg PO DAILY 90 days #90 tabs 06/12/24 prednisone 5 mg tablet 5 mg PO DAILY 90 days #90 tabs 06/19/24 Allergies Allergy/AdvReac Type Severity Reaction Status Date / Time amoxicillin Allergy Unknown Verified 11/26/24 13:24 epinephrine Allergy Unknown Verified 11/26/24 13:24 Penicillins Allergy Unknown Verified 11/26/24 13:24 Review of Systems 2 Const: Reports: chills and body aches; Denies: fever(s) Eyes: Denies: change in vision ENMT: Denies: throat pain Card: Denies: chest pain, palpitations or edema Resp: Reports: dyspnea, productive cough and chest congestion GI: Denies: abdominal pain, nausea, vomiting or diarrhea : Denies: flank pain or difficulty voiding Musc: Denies: back pain or extremity pain Skin/Breast: Denies: rash Neuro: Denies: headache(s) [place]/Lymph: Denies: easy bruising or easy bleeding PFSH ED 2 PFSH: Medical History (Updated 11/26/24 @ 17:15 by Nisha Wills MD) Anxiety Hypothyroidism Encounter for counseling for care management of patient with chronic conditions and complex health needs using nurse-based model Sleep apnea Left bundle branch block Cor pulmonale Essential hypertension COPD (chronic obstructive pulmonary disease) Environmental and seasonal allergies Anxiety Dyslipidemia Social History Smoking and tobacco/nicotine status: current every day tobacco/nicotine user cigarettes Packs smoked per day: 1 Years cigarettes smoked: 40 [ Other cigarette details: started at age 16] Alcohol intake: current Alcohol intake frequency: few times a month Substance/Drug Use: never Lives independently: Yes Housing: House Marital status: Single Marital status details: lives with significant other Current occupational status: disabled Current gender identity: Female Physical Exam 2 Narrative: EXAM NARRATIVE: Const: no acute distress, cooperative, well appearing HENMT: normocephalic, atraumatic, normal facial exam, posterior oropharynx normal w/ no tonsillar erythema or exudates Eye: Equal, round and reactive pupils present and EOMs intact bilaterally Neck/C-Spine: trachea midline, no stridor, no midline c spine tenderness , no paraspinal neck muscle tenderness Chest: no rib or chest wall tenderness Resp: Diffuse expiratory wheezing, mildly labored breathing, use of accessory muscles Cardio: COMMON NORMALS: regular rate and regular rhythm RATE: regular rate RHYTHM: regular rhythm GI: Normal to inspection, no tenderness, nondistended, normoactive bowel sounds present Extremity: COMMON NORMALS: no pedal edema Neuro: GCS 15, AO x 4, normal speech, CN intact, normal motor exam, normal sensory exam, no ataxia Psych: cooperative, appropriate mood and affect Skin: no rashes or lesions Course 2 Reevaluation(s): Reevaluation #1: Patient does feel improved with treatment, however still significant wheezing present, she is satting well on 2 L nasal cannula. Given her persistent wheezing will plan for inpatient admission for acute COPD and COVID treatment. Time: 16:38 Reevaluation #2: Case discussed with Dr. Gaviria who accepts admission and requests ABG to help direct dispo Vital Signs: Vital signs: Vital Signs Temperature 98.3 F 11/26/24 13:20 Pulse Rate 93 11/26/24 17:06 Respiratory Rate 25 H 11/26/24 17:06 Blood Pressure 130/75 11/26/24 17:06 Pulse Oximetry 95 11/26/24 17:06 Oxygen Delivery Me thod Nasal Cannula 11/26/24 17:06 Oxygen Flow Rate 2 11/26/24 17:06 MDM - SOB/Dyspnea Medical Decision Making Workup remarkable for chest x-ray no significant pneumonia, D-dimer mildly elevated will obtain CT of the chest to rule out PE, however presentation most consistent with acute COPD complicated by COVID infection. Patient is persistently wheezing despite treatments plan for inpatient admission. Lab Data 11/26/24 13:52 11/26/24 13:52 Labs/Radiology: Radiology Impressions Chest X-Ray 11/26/24 13:23 IMPRESSION: Emphysematous change with mild scarring, and particularly right upper lobe. Chest CTA 11/26/24 16:08 IMPRESSION: 1. No CT findings of pulmonary embolus. 2. Mild arteriosclerosis thoracic aorta and mild coronary artery calcification. 3. Emphysematous change with mild interstitial scarring and component of bronchial wall thickening/bronchiectasis. Predominant linear type scarring right upper lobe with interval decrease and improvement in subsolid opacification in the right upper lobe from 2022 exam. Significant interval decrease in size or improvement in left upper lobe nodule from prior exam as well. 4. Mild ill-defined focal opacity posterior mid to lower right lung and small amount of ground-glass opacity posterior lower left lung. Consider superimposed infiltrate and consider follow-up with treatment, particularly mid to lower right lung. COMMENTS: The presence of pulmonary emphysema on CT is an independent risk factor for lung cancer. In the absence of a history or active diagnosis of lung cancer, it is recommended that this patient with emphysema be evaluated for enrollment in a low dose CT lung cancer screening program. Laboratory Results WBC 11.72 10^3/uL (3.29-11.43) H 11/26/24 13:52 RBC 4.08 10^6/uL (3.85-5.65) 11/26/24 13:52 Hgb 13.90 g/dL (11.27-16.99) 11/26/24 13:52 Hct 41.3 % (36-47) 11/26/24 13:52 MCV 101.2 fl (85-98) H 11/26/24 13:52 MCH 34.1 pg (27-33) H 11/26/24 13:52 MCHC 33.7 g/dL (30-55) 11/26/24 13:52 RDW 11.2 % (12.1-15.1) L 11/26/24 13:52 Plt Count 312 10^3/cmm (157-399) 11/26/24 13:52 MPV 9.2 fL (7.4-10.4) 11/26/24 13:52 Neut % (Auto) 77.9 % 11/26/24 13:52 Lymph % (Auto) 11.6 % 11/26/24 13:52 [place] % (Auto) 9.4 % 11/26/24 13:52 Eos % (Auto) 0.3 % 11/26/24 13:52 Baso % (Auto) 0.3 % 11/26/24 13:52 Neut # (Auto) 9.12 10^3/uL (1.8-7.7) H 11/26/24 13:52 Lymph # (Auto) 1.4 10^3/uL (0.8-4.8) 11/26/24 13:52 [place] # (Auto) 1.1 10^3/uL (0.2-0.9) H 11/26/24 13:52 Eos # (Auto) 0.0 10^3/uL (0.0-0.8) 11/26/24 13:52 Baso # (Auto) 0.0 10^3/uL (0.0-0.1) 11/26/24 13:52 Nucleated RBC % (auto) 0 % 11/26/24 13:52 Nucleated RBCs # 0.0 /100WBC 11/26/24 13:52 D-Dimer 0.81 ug/mLFEU (0-0.59) H 11/26/24 13:52 Specimen Type Arterial 11/26/24 17:00 Sample Site Radial, right 11/26/24 17:00 ABG pH 7.47 (7.35-7.45) H 11/26/24 17:00 ABG pCO2 55.0 mmHg (35-45) H 11/26/24 17:00 ABG pO2 65.0 mmHg (80.0-100.0) L 11/26/24 17:00 ABG PO2/FiO2 Ratio 309 11/26/24 17:00 ABG HCO3 40.1 mmol/L (22-26) H 11/26/24 17:00 ABG Base Excess 13.9 mmol/L (-2.0-2.0) H 11/26/24 17:00 Fletcher Test Pos 11/26/24 17:00 Hematocrit 42.4 % (37-47) 11/26/24 17:00 O2 Delivery Device Room air 11/26/24 17:00 FiO2 21.0 % 11/26/24 17:00 Trumpet Player ID Julián 11/26/24 17:00 Sodium 138 mmol/L (136-145) 11/26/24 13:52 Potassium 3.2 mmol/L (3.5-5.1) L 11/26/24 13:52 Chloride 92 mmol/L (98-107) L 11/26/24 13:52 Carbon Dioxide 34 mmol/L (22-29) H 11/26/24 13:52 Anion Gap 15.2 (5-19) 11/26/24 13:52 BUN 7 mg/dL (8-23) L 11/26/24 13:52 Creatinine 0.4 mg/dL (0.5-0.9) L 11/26/24 13:52 GFR Calculation 162.8 mL/min (90-130) H 11/26/24 13:52 Glucose 116 mg/dL (65-115) H 11/26/24 13:52 Calculated Osmolality 285 mOsm/kg (285-295) 11/26/24 13:52 Calcium 9.2 mg/dL (8.5-10.5) 11/26/24 13:52 Total Bilirubin 0.2 mg/dL (0.15-1.2) 11/26/24 13:52 AST 29 U/L (0-32) 11/26/24 13:52 ALT 22 U/L (0-33) 11/26/24 13:52 Alkaline Phosphatase 77 U/L (35-105) 11/26/24 13:52 Troponin T Baseline 9 ng/L (0-10) 11/26/24 13:52 Troponin T 120 Minute 7.90 ng/L (0-10) 11/26/24 15:52 Delta Troponin T -1.10 ABS# (0-10) L 11/26/24 15:52 NT-Pro-B Natriuret Pep 462 pg/mL (0-125) H 11/26/24 13:52 Total Protein 6.6 g/dL (6.6-8.7) 11/26/24 13:52 Albumin 3.6 g/dL (3.5-5.2) 11/26/24 13:52 Globulin 3.0 g/dL (1.3-4.6) 11/26/24 13:52 Coronavirus (PCR) Positive (Negative) A 11/26/24 13:45 Influenza A (PCR) Negative (Negative) 11/26/24 13:45 Influenza Type B (PCR) Negative (Negative) 11/26/24 13:45 RSV (PCR) Negative (Negative) 11/26/24 13:45 All radiology interpretation(s) finalized by discharge ED provider radiology interpretation(s): CTA pending, however no PE as per my interpretation. Discharge Plan Discharge Patient Disposition: Admitted As Inpatient Clinical Impression: Acute exacerbation of chronic obstructive pulmonary disease, Pneumonia Condition: Stable Coding Level of Care Code ED Square Dance Caller for Adelaida Rodgers
[2024-11-26 17:11] LABS: ABG PH Result 7.47 (7.35-7.45); Arterial Blood Gas Hematocrit 42.4 % (37-47); Base Excess ABG 13.9 mmol/L (-2.0-2.0); Blood Gas Allen Test Pos; Blood Gas Operator Identificat WALCI; Blood Gas Sample Site Radial, right; Blood Gas Sample Type Arterial; HCO3 ABG 40.1 mmol/L (22-26); Oxygen Device ROOM AIR; PO2 FiO2 Ratio Arterial Blood 309
[2024-11-26] MEDS: ipratropium-albuterol 3 mL Neb INHALATION ×2 (17:21→23:35)
--- NOTE | 2024-11-26 17:54 | PM.HP ---
Providers/Chief Complaint Admitting Physician: Lucy Ward MD Primary Care Provider: JUANPABLO Fuentes Chief Complaint: sob, low o2 History of Present Illness Vanessa Jimenez is a 59 year old female with past medical history of COPD, known pulmonary nodules, anxiety disorder presenting to the hospital today for 1 week of increasing shortness of breath, increased cough, generalized bodyaches. She has been having significant wheezing which is not relieved by use of her typical medications at home. She was found to be COVID-positive. Significant wheezing noted to be persisting in the emergency room in spite of multiple treatments with albuterol and steroids. Admission is requested for persistent wheezing. Review of Systems General: Reports: 10 or more systems reviewed and unremarkable except in HPI and below Const: Denies: fever(s), chills or body aches Eyes: Denies: change in vision, blurry vision or photophobia ENMT: Reports: hoarseness; Denies: throat pain, enlarged tonsils, odynophagia or nasal congestion Card: Denies: chest pain, palpitations, irregular heart rhythm, edema, swelling of feet/ankles, lightheadedness, pre-syncope, dyspnea on exertion or orthopnea Resp: Denies: dyspnea, productive cough, non-productive cough, wheezing, stridor, pain on inspiration, change in phlegm color, hemoptysis or chest congestion GI: Denies: abdominal pain, nausea, vomiting, hematemesis, coffee ground emesis, dysphagia, heartburn, diarrhea, constipation, GI cramping, change in stool character, hematochezia or melena : Denies: flank pain, difficulty voiding, dysuria, urinary frequency, urinary urgency, urinary hesitancy or hematuria Musc: Denies: neck pain, back pain, extremity pain, joint swelling, joint warmth or deformity Neuro: Denies: headache(s), numbness in extremities, weakness in extremities, sensory changes, difficulty walking, frequent falls, dizziness, vertigo, behavioral changes, Slurred speech present or seizure-like activity Psych: Denies: anxiety, depression, suicidal ideation or homicidal ideation Endo: Denies: polyuria, polydipsia, tired all the time, cold intolerance or hot flashes [place]/Lymph: Denies: easy bruising or easy bleeding Medications/Allergies Home Medications Medication Instructions Recorded Confirmed Last Taken Type aspirin 81 mg tablet,delayed 81 mg PO DAILY 09/08/20 11/26/24 11/26/24 History release (Adult Aspirin Regimen) B-complex with vitamin C 1 cap PO DAILY 12/11/22 11/26/24 11/26/24 History guaifenesin 600 mg tablet, 600 mg PO BID PRN Cough 12/11/22 11/26/24 11/25/24 History extended release 12 hr (Mucinex) diltiazem HCl 240 mg capsule,24 240 mg PO DAILY 30 days #30 caps 06/12/24 11/26/24 11/26/24 Rx hr,extended release fluticasone fur. 100 mcg-umeclid 1 inh inhalation DAILY 30 days #28 06/12/24 11/26/24 11/26/24 Rx 62.5 mcg-vilant 25 mcg ea inhalat.powder (Trelegy Ellipta) furosemide 20 mg tablet 20 mg PO DAILY 30 days #30 tabs 06/12/24 11/26/24 11/26/24 Rx ipratropium 0.5 mg-albuterol 3 mg 3 ml inhalation Q4H PRN wheezing 06/12/24 11/26/24 11/26/24 Rx (2.5 mg base)/3 mL nebulization #180 mL soln levothyroxine 100 mcg tablet 100 mcg PO DAILY 30 days #30 tabs 06/12/24 11/26/24 11/26/24 Rx (Synthroid) montelukast 10 mg tablet 10 mg PO DAILY 30 days #30 tabs 06/12/24 11/26/24 11/26/24 Rx pravastatin 20 mg tablet 20 mg PO DAILY 30 days #30 tabs 06/12/24 11/26/24 11/26/24 Rx raloxifene 60 mg tablet (Evista) 60 mg PO DAILY 90 days #90 tabs 06/12/24 11/26/24 11/26/24 Rx prednisone 5 mg tablet 5 mg PO DAILY 90 days #90 tabs 06/19/24 11/26/24 11/26/24 Rx albuterol sulfate 90 mcg/actuation 2 puff inhalation QID 11/26/24 11/26/24 Unknown History aerosol inhaler (Ventolin HFA) Allergies Allergy/AdvReac Type Severity Reaction Status Date / Time amoxicillin Allergy Unknown Verified 11/26/24 13:24 epinephrine Allergy Unknown Verified 11/26/24 13:24 Penicillins Allergy Unknown Verified 11/26/24 13:24 PFSH Acute PFSH: Medical History (Updated 11/26/24 @ 17:56 by Lucy Ward MD) Anxiety Hypothyroidism Encounter for counseling for care management of patient with chronic conditions and complex health needs using nurse-based model Sleep apnea Left bundle branch block Cor pulmonale Essential hypertension COPD (chronic obstructive pulmonary disease) Environmental and seasonal allergies Anxiety Dyslipidemia Social History Smoking and tobacco/nicotine status: current every day tobacco/nicotine user cigarettes Packs smoked per day: 1 Years cigarettes smoked: 40 [ Other cigarette details: started at age 16] Alcohol intake: current Alcohol intake frequency: few times a month Substance/Drug Use: never Lives independently: Yes Housing: House Marital status: Single Marital status details: lives with significant other Current occupational status: disabled Current gender identity: Female Vitals/I&O/Wt Last Vital Signs Temp 98.3 F 11/26/24 13:20 Pulse 87 11/26/24 17:21 Resp 18 11/26/24 17:21 BP 130/75 11/26/24 17:06 Pulse Ox 93 11/26/24 17:21 O2 Del Method Room Air 11/26/24 17:21 O2 Flow Rate 2 11/26/24 17:06 Weight last 48 hrs Weight 38.102 kg Physical Exam Narrative: General: No acute distress, AO x3 cachexia, malnourished, BMI only 15. HEENT: PERRLA, pupils bilaterally equal and reactive, pallors not present Chest: Wheezing to auscultation bilaterally CVS: S1-S2 regular, no murmurs, no tachycardia, no gallops, no rubs Abdomen: Soft, nontender, no organomegaly, bowel sounds present Neuro: No focal deficits, no facial deformity, AO x3, power 5/5 in all limbs Data 11/26/24 13:52 11/26/24 13:52 Other Labs: Radiology Impressions Chest X-Ray 11/26/24 13:23 IMPRESSION: Emphysematous change with mild scarring, and particularly right upper lobe. Chest CTA 11/26/24 16:08 IMPRESSION: 1. No CT findings of pulmonary embolus. 2. Mild arteriosclerosis thoracic aorta and mild coronary artery calcification. 3. Emphysematous change with mild interstitial scarring and component of bronchial wall thickening/bronchiectasis. Predominant linear type scarring right upper lobe with interval decrease and improvement in subsolid opacification in the right upper lobe from 2022 exam. Significant interval decrease in size or improvement in left upper lobe nodule from prior exam as well. 4. Mild ill-defined focal opacity posterior mid to lower right lung and small amount of ground-glass opacity posterior lower left lung. Consider superimposed infiltrate and consider follow-up with treatment, particularly mid to lower right lung. COMMENTS: The presence of pulmonary emphysema on CT is an independent risk factor for lung cancer. In the absence of a history or active diagnosis of lung cancer, it is recommended that this patient with emphysema be evaluated for enrollment in a low dose CT lung cancer screening program. Laboratory Results WBC 11.72 10^3/uL (3.29-11.43) H 11/26/24 13:52 RBC 4.08 10^6/uL (3.85-5.65) 11/26/24 13:52 Hgb 13.90 g/dL (11.27-16.99) 11/26/24 13:52 Hct 41.3 % (36-47) 11/26/24 13:52 MCV 101.2 fl (85-98) H 11/26/24 13:52 MCH 34.1 pg (27-33) H 11/26/24 13:52 MCHC 33.7 g/dL (30-55) 11/26/24 13:52 RDW 11.2 % (12.1-15.1) L 11/26/24 13:52 Plt Count 312 10^3/cmm (157-399) 11/26/24 13:52 MPV 9.2 fL (7.4-10.4) 11/26/24 13:52 Neut % (Auto) 77.9 % 11/26/24 13:52 Lymph % (Auto) 11.6 % 11/26/24 13:52 Pershing % (Auto) 9.4 % 11/26/24 13:52 Eos % (Auto) 0.3 % 11/26/24 13:52 Baso % (Auto) 0.3 % 11/26/24 13:52 Neut # (Auto) 9.12 10^3/uL (1.8-7.7) H 11/26/24 13:52 Lymph # (Auto) 1.4 10^3/uL (0.8-4.8) 11/26/24 13:52 Pershing # (Auto) 1.1 10^3/uL (0.2-0.9) H 11/26/24 13:52 Eos # (Auto) 0.0 10^3/uL (0.0-0.8) 11/26/24 13:52 Baso # (Auto) 0.0 10^3/uL (0.0-0.1) 11/26/24 13:52 Nucleated RBC % (auto) 0 % 11/26/24 13:52 Nucleated RBCs # 0.0 /100WBC 11/26/24 13:52 D-Dimer 0.81 ug/mLFEU (0-0.59) H 11/26/24 13:52 Specimen Type Arterial 11/26/24 17:00 Sample Site Radial, right 11/26/24 17:00 ABG pH 7.47 (7.35-7.45) H 11/26/24 17:00 ABG pCO2 55.0 mmHg (35-45) H 11/26/24 17:00 ABG pO2 65.0 mmHg (80.0-100.0) L 11/26/24 17:00 ABG PO2/FiO2 Ratio 309 11/26/24 17:00 ABG HCO3 40.1 mmol/L (22-26) H 11/26/24 17:00 ABG Base Excess 13.9 mmol/L (-2.0-2.0) H 11/26/24 17:00 Fletcher Test Pos 11/26/24 17:00 Hematocrit 42.4 % (37-47) 11/26/24 17:00 O2 Delivery Device Room air 11/26/24 17:00 FiO2 21.0 % 11/26/24 17:00 Product Safety Technician ID Julián 11/26/24 17:00 Sodium 138 mmol/L (136-145) 11/26/24 13:52 Potassium 3.2 mmol/L (3.5-5.1) L 11/26/24 13:52 Chloride 92 mmol/L (98-107) L 11/26/24 13:52 Carbon Dioxide 34 mmol/L (22-29) H 11/26/24 13:52 Anion Gap 15.2 (5-19) 11/26/24 13:52 BUN 7 mg/dL (8-23) L 11/26/24 13:52 Creatinine 0.4 mg/dL (0.5-0.9) L 11/26/24 13:52 GFR Calculation 162.8 mL/min (90-130) H 11/26/24 13:52 Glucose 116 mg/dL (65-115) H 11/26/24 13:52 Calculated Osmolality 285 mOsm/kg (285-295) 11/26/24 13:52 Calcium 9.2 mg/dL (8.5-10.5) 11/26/24 13:52 Total Bilirubin 0.2 mg/dL (0.15-1.2) 11/26/24 13:52 AST 29 U/L (0-32) 11/26/24 13:52 ALT 22 U/L (0-33) 11/26/24 13:52 Alkaline Phosphatase 77 U/L (35-105) 11/26/24 13:52 Troponin T Baseline 9 ng/L (0-10) 11/26/24 13:52 Troponin T 120 Minute 7.90 ng/L (0-10) 11/26/24 15:52 Delta Troponin T -1.10 ABS# (0-10) L 11/26/24 15:52 NT-Pro-B Natriuret Pep 462 pg/mL (0-125) H 11/26/24 13:52 Total Protein 6.6 g/dL (6.6-8.7) 11/26/24 13:52 Albumin 3.6 g/dL (3.5-5.2) 11/26/24 13:52 Globulin 3.0 g/dL (1.3-4.6) 11/26/24 13:52 Coronavirus (PCR) Positive (Negative) A 11/26/24 13:45 Influenza A (PCR) Negative (Negative) 11/26/24 13:45 Influenza Type B (PCR) Negative (Negative) 11/26/24 13:45 RSV (PCR) Negative (Negative) 11/26/24 13:45 ABG Interpretation 1: 11/26/24 17:00 ABG pH 7.47 H ABG pCO2 55.0 H ABG pO2 65.0 L ABG HCO3 40.1 H ABG Base Excess 13.9 H A&P Assessment and plan (1) COVID-19: (2) Cor pulmonale: (3) Acute exacerbation of chronic obstructive pulmonary disease (COPD): Plan Admit to [facility] in observation Remdisivir 200mg iv x 1 followed by 100mg iv daily Methylprednisolone 40 mg IV every 8 hours duoneb q6h, budesonide q12h scheduled nebulization empiric levofloxacin Flutter valve/spirometer at bedside trend inflammatory markers including CRP CTA PE negative for PE Possible infiltrate for which patient has been started on empiric levofloxacin Sputum culture if able to expectorate Attestations Medical Necessity Statement*: Less than 2 midnight stay currently anticipated Coding Level of Care Code Acute Code for Chg Fwd Diagnoses COVID-19 U07.1 Cor pulmonale I27.81 Acute exacerbation of chronic obstructive pulmonary disease (COPD) J44.1
[2024-11-26] MEDS: levoFLOXacin 750 mg Tablet PO (18:28)
[2024-11-26] MEDS: enoxaparin 40 mg/0.4 mL Syringe SUBCUT (18:29)
[2024-11-26] MEDS: methylPREDNISolone sod succ 40 mg/mL INJ IVP (19:03)
[2024-11-26 20:28] LABS: Troponin 5 6HR 6.82 ng/L (0-10)
[2024-11-26 20:31] LABS: Troponin 5 6HR Delta -2.18 ng/L (0-12)
[2024-11-26] MEDS: remdesivir 200 MG in sodium chloride 0.9% (100 ml) 100 ML 100 MG IV (21:05)
[2024-11-26] MEDS: budesonide 0.5 mg/2 mL Neb INHALATION (23:35)
[2024-11-27] VITALS (13 sets, daily range): BP systolic 112–137; BP diastolic 66–77; PULSE 74–94; RESP 15–22; TEMP 36.8–37.1; O2SAT 93–98
[2024-11-27] MEDS: ipratropium-albuterol 3 mL Neb INHALATION ×4 (03:05→19:43)
[2024-11-27] MEDS: methylPREDNISolone sod succ 40 mg/mL INJ IVP ×2 (03:25→09:48)
[2024-11-27 06:38] LABS: Basophils % 0.2 %; Hematocrit 36.9 % (36-47); Lymphocytes % 15.1 %; Mean Corpuscular HGB Conc 34.1 g/dL (30-55); Mean Corpuscular Hemoglobin 34.9 pg (27-33); Mean Corpuscular Volume 102.2 fl (85-98); Monocytes # 0.2 10^3/uL (0.2-0.9); Monocytes % 2.9 %; Neutrophils # 5.35 10^3/uL (1.8-7.7); Neutrophils % 81.3 %; Nucleated Red Blood Cells % 0 %; Platelet Count 292 10^3/cmm (157-399); Red Blood Count 3.61 10^6/uL (3.85-5.65); Red Cell Distribution Width 11.2 % (12.1-15.1); White Blood Count 6.57 10^3/uL (3.29-11.43)
[2024-11-27 07:00] LABS: C Reactive Protein 44.2 mg/L (0.0-4.9)
[2024-11-27 07:02] LABS: Alanine Aminotransferase 22 U/L (0-33); Albumin Level 3.3 g/dL (3.5-5.2); Alkaline Phosphatase 69 U/L (35-105); Anion Gap 12.5 (5-19); Aspartate Amino Transferase 27 U/L (0-32); Blood Urea Nitrogen 9 mg/dL (8-23); Calcium 8.8 mg/dL (8.5-10.5); Carbon Dioxide 33 mmol/L (22-29); Chloride 95 mmol/L (98-107); Creatinine Clr Calc Pharmacy 117.0954; Globulin 2.7 g/dL (1.3-4.6); Glomerular Filtration Rate 226.9 mL/min (90-130); Glucose 160 mg/dL (65-115); Osmolality Calculated 286 mOsm/kg (285-295); Potassium 3.5 mmol/L (3.5-5.1); Sodium 137 mmol/L (136-145); Total Bilirubin 0.2 mg/dL (0.15-1.2)
[2024-11-27] MEDS: budesonide 0.5 mg/2 mL Neb INHALATION ×2 (08:07→19:44)
--- NOTE | 2024-11-27 09:02 | PC.CHAP ---
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 [] Patient/Family/Request visit [] Outpatient visit [] Follow-up visit [] Physician referral [] Code/Alert [] Routine visit [] Staff referral [] Actively dying [] Patient sleeping [] Family support [] [] Out of room [] Palliative care [] [] Receiving care in room [] Pre-surgical visit [] Trauma [] Long length of stay [] ICU visit [X] Other:Other: STOP See Nurse Relational/Emotional Strength [] Patient feels connected with others/family/visitors/staff [] Distress [] Loneliness/isolation [] Abandonment Spirituality of Patient [] Person of Sybil [] Attends Gnosticism of their Sybil [] Believes in Prayer [] Reads Bible or Amish materials [] There are Spiritual issues to be addressed Psychological Aide Interventions [] Prayer [] Active listening [] Non-anxious presence [] Spiritual/emotional support [] Crisis/trauma care [] Spiritual counseling [] Bereavement support [] Provided bereavement packet [] Provided Bible/devotional materials [] Provided toy/stuffed animal, coloring book to patient or family member [] Provided Communion [] Anointing/Y[place] [] Salvation [] Completed spiritual assessment [] Other: Impact on Illness or Injury [] Angry [] Fearful [] Anxious [] Often cries [] Exhaustion [] Unable to work [] Unable to attend denominational [] Unable to walk/stand [] Unable to read [] Unable to drive [] Unable to eat/drink [] Unable to sleep [] Unable to be with family [] Patient intubated [] Other: Summary Time spent with patient
--- NOTE | 2024-11-27 09:13 | PC.SOCIAL ---
IMM Update Pg. 2 of IMM updated and reviewed with patient, who verbalized understanding. Copy provided.
[2024-11-27] MEDS: atorvastatin 40 mg Tablet 20 MG PO (09:47)
[2024-11-27] MEDS: aspirin 81 mg EC Tablet PO (09:47)
[2024-11-27] MEDS: FUROsemide 20 mg Tablet PO (09:48)
[2024-11-27] MEDS: dilTIAZem ER (24HR) 240 mg Capsule PO (09:48)
[2024-11-27] MEDS: pantoprazole DR 40 mg Tablet PO (09:48)
[2024-11-27] MEDS: levoFLOXacin 750 mg Tablet PO (09:48)
[2024-11-27] MEDS: levothyroxine 100 mcg Tablet PO (09:48)
--- NOTE | 2024-11-27 14:16 | PM.PN ---
Subjective Subjective: Patient continues to have significant wheezing today. States she gets short of breath when walking to the bathroom and back. Medications: Reviewed: Yes Vitals/I&O/Wt Last Vital Signs Temp 98.7 F 11/27/24 12:00 Pulse 91 11/27/24 13:32 Resp 22 H 11/27/24 13:32 BP 137/71 11/27/24 12:00 Pulse Ox 93 11/27/24 13:32 O2 Del Method Nasal Cannula 11/27/24 13:32 O2 Flow Rate 2 11/27/24 13:32 11/26/24 11/27/24 11/27/24 22:59 06:59 14:59 Intake Total 120 / 120 320 / 440 240 / 240 Balance 120 / 120 320 / 440 240 / 240 Weight last 48 hrs Weight 37.195 kg Weight 38.102 kg Physical Exam Narrative: General: No acute distress, AO x3 cachexia, malnourished, BMI only 15. HEENT: PERRLA, pupils bilaterally equal and reactive, pallors not present Chest: Wheezing to auscultation bilaterally CVS: S1-S2 regular, no murmurs, no tachycardia, no gallops, no rubs Abdomen: Soft, nontender, no organomegaly, bowel sounds present Neuro: No focal deficits, no facial deformity, AO x3, power 5/5 in all limbs Data 11/27/24 06:24 11/27/24 06:24 A&P Assessment and plan (1) COVID-19: (2) Cor pulmonale: (3) Acute exacerbation of chronic obstructive pulmonary disease (COPD): Plan Admit to [facility] in observation Remdisivir 200mg iv x 1 followed by 100mg iv daily Methylprednisolone 40 mg IV every 8 hours duoneb q6h, budesonide q12h scheduled nebulization empiric levofloxacin Flutter valve/spirometer at bedside trend inflammatory markers including CRP CTA PE negative for PE Possible infiltrate for which patient has been started on empiric levofloxacin Sputum culture if able to expectorate 11/27/2024 patient continues to have significant wheezing today. Gets very short of breath and walking minimal distance from bed to the bathroom. Patient lives alone and with her level of respiratory compromise currently would not be safe to be discharged home alone. Will continue high-dose steroids. Increased from 40 mg every 8 hours to 80 mg every 8 hours. Continue scheduled nebulization. Continue antivirals. Add Tessalon for bouts of coughing. Attestations Medical Necessity Statement*: Continued admission for significant persisting wheezing. Coding Level of Care Code Acute Code for Chg Fwd Moderate MDM includes number and complexity of problems actively addressed during encounter, amount and/or complexity of data reviewed/ordered and described risk of complication, morbidity or mortality of management as documented Diagnoses COVID-19 U07.1 Cor pulmonale I27.81 Acute exacerbation of chronic obstructive pulmonary disease (COPD) J44.1
[2024-11-27] MEDS: methylPREDNISolone sod succ 125 mg/2 mL INJ 80 MG IVP ×2 (14:48→22:10)
[2024-11-27] MEDS: benzonatate 100 mg Capsule PO (14:48)
[2024-11-27] MEDS: enoxaparin 40 mg/0.4 mL Syringe SUBCUT (17:59)
[2024-11-27] MEDS: remdesivir 100 MG in sodium chloride 0.9% (100 ml) 100 ML IV (17:59)
[2024-11-28] VITALS (14 sets, daily range): BP systolic 102–150; BP diastolic 48–82; PULSE 79–104; RESP 16–22; TEMP 36.4–37.1; O2SAT 90–99
[2024-11-28] MEDS: ipratropium-albuterol 3 mL Neb INHALATION ×4 (02:30→19:58)
[2024-11-28 05:08] LABS: Basophils % 0.1 %; Hematocrit 33.8 % (36-47); Lymphocytes # 1.2 10^3/uL (0.8-4.8); Lymphocytes % 7.3 %; Mean Corpuscular HGB Conc 35.2 g/dL (30-55); Mean Corpuscular Hemoglobin 36.5 pg (27-33); Mean Corpuscular Volume 103.7 fl (85-98); Mean Platelet Volume 10.5 fL (7.4-10.4); Monocytes # 0.7 10^3/uL (0.2-0.9); Monocytes % 4.1 %; Neutrophils # 14.31 10^3/uL (1.8-7.7); Neutrophils % 87.9 %; Nucleated Red Blood Cells % 0 %; Platelet Count 285 10^3/cmm (157-399); Red Blood Count 3.26 10^6/uL (3.85-5.65); Red Cell Distribution Width 11.2 % (12.1-15.1); White Blood Count 16.28 10^3/uL (3.29-11.43)
[2024-11-28] MEDS: methylPREDNISolone sod succ 125 mg/2 mL INJ 80 MG IVP ×2 (05:22→13:40)
[2024-11-28 05:23] LABS: Alanine Aminotransferase 20 U/L (0-33); Albumin Level 3.3 g/dL (3.5-5.2); Alkaline Phosphatase 75 U/L (35-105); Anion Gap 11.1 (5-19); Aspartate Amino Transferase 24 U/L (0-32); Blood Urea Nitrogen 10 mg/dL (8-23); Calcium 8.7 mg/dL (8.5-10.5); Carbon Dioxide 36 mmol/L (22-29); Chloride 94 mmol/L (98-107); Creatinine Clr Calc Pharmacy 119.3243; Globulin 2.3 g/dL (1.3-4.6); Glomerular Filtration Rate 226.9 mL/min (90-130); Glucose 157 mg/dL (65-115); Osmolality Calculated 288 mOsm/kg (285-295); Potassium 3.1 mmol/L (3.5-5.1); Sodium 138 mmol/L (136-145); Total Bilirubin 0.2 mg/dL (0.15-1.2); Total Protein 5.6 g/dL (6.6-8.7)
[2024-11-28] MEDS: budesonide 0.5 mg/2 mL Neb INHALATION ×2 (08:36→19:58)
[2024-11-28] MEDS: pantoprazole DR 40 mg Tablet PO (09:03)
[2024-11-28] MEDS: levoFLOXacin 750 mg Tablet PO (09:03)
[2024-11-28] MEDS: atorvastatin 40 mg Tablet 20 MG PO (09:03)
[2024-11-28] MEDS: dilTIAZem ER (24HR) 240 mg Capsule PO (09:04)
[2024-11-28] MEDS: levothyroxine 100 mcg Tablet PO (09:04)
[2024-11-28] MEDS: aspirin 81 mg EC Tablet PO (09:04)
[2024-11-28] MEDS: FUROsemide 20 mg Tablet PO (09:04)
[2024-11-28] MEDS: potassium chloride ER 20 mEq Tablet PO (11:21)
[2024-11-28] MEDS: benzonatate 100 mg Capsule PO ×2 (13:45→22:18)
--- NOTE | 2024-11-28 14:54 | P.PN_ITS ---
Subjective 2 Subjective: Patient is better today. Still has some persistent wheezing on the right side but better compared to yesterday's exam. WBC up to 16,000. No fever. Suspect this is related to high-dose steroid use. Medications: Reviewed: Yes Vitals/I&O/Wt Last Vital Signs Temp 98 F 11/28/24 11:19 Pulse 79 11/28/24 14:00 Resp 22 H 11/28/24 13:51 BP 102/48 11/28/24 11:19 Pulse Ox 92 11/28/24 13:51 O2 Del Method Nasal Cannula 11/28/24 13:51 O2 Flow Rate 2 11/28/24 13:51 11/27/24 11/28/24 11/28/24 22:59 06:59 14:59 Intake Total 340 / 580 960 / 960 Balance 340 / 580 960 / 960 Weight last 48 hrs Weight 37.903 kg Weight 37.195 kg Physical Exam 2 Narrative: General: No acute distress, AO x3 cachexia, malnourished, BMI only 15. HEENT: PERRLA, pupils bilaterally equal and reactive, pallors not present Chest: Wheezing to auscultation bilaterally CVS: S1-S2 regular, no murmurs, no tachycardia, no gallops, no rubs Abdomen: Soft, nontender, no organomegaly, bowel sounds present Neuro: No focal deficits, no facial deformity, AO x3, power 5/5 in all limbs Data 11/28/24 04:11 11/28/24 04:11 Micro: Microbiology 11/26/24 23:20 Gram Stain - Final Sputum - Expectorated Sputum Sputum Culture - Preliminary A&P Assessment and plan (1) COVID-19: (2) Cor pulmonale: (3) Acute exacerbation of chronic obstructive pulmonary disease (COPD): Plan Admit to [facility] in observation Remdisivir 200mg iv x 1 followed by 100mg iv daily Methylprednisolone 40 mg IV every 8 hours duoneb q6h, budesonide q12h scheduled nebulization empiric levofloxacin Flutter valve/spirometer at bedside trend inflammatory markers including CRP CTA PE negative for PE Possible infiltrate for which patient has been started on empiric levofloxacin Sputum culture if able to expectorate 11/27/2024 patient continues to have significant wheezing today. Gets very short of breath and walking minimal distance from bed to the bathroom. Patient lives alone and with her level of respiratory compromise currently would not be safe to be discharged home alone. Will continue high-dose steroids. Increased from 40 mg every 8 hours to 80 mg every 8 hours. Continue scheduled nebulization. Continue antivirals. Add Tessalon for bouts of coughing. 11/28/2024 Patient is slightly better compared to yesterday's exam. Chiefly on the right side. White count up to 16,000. Suspect this is related to steroid use. Will check MRSA nasal screen in case needs additional coverage. Repeat chest x-ray. Trend CRP with a.m. labs. Transition IV to oral steroids and assess for any deterioration.Continue Remdisivir 100mg iv daily day 3 today. Attestations 2 Medical Necessity Statement*: transition iv to oral steroids, monitor for any worsening, check CXR Coding Level of Care Code Acute Code for Chg Fwd Moderate MDM includes number and complexity of problems actively addressed during encounter, amount and/or complexity of data reviewed/ordered and described risk of complication, morbidity or mortality of management as documented Diagnoses COVID-19 U07.1 Cor pulmonale I27.81 Acute exacerbation of chronic obstructive pulmonary disease (COPD) J44.1
--- NOTE | 2024-11-28 14:56 | XRR_ITS ---
PROCEDURE INFORMATION: Exam: XR Chest Exam date and time: 11/28/2024 4:57 PM Age: 59 years old Clinical indication: Condition or disease; Lung condition and disease; Pneumonia; Other: Unknown; Additional info: Follow up covid, assess for worsening pneumonia TECHNIQUE: Imaging protocol: Radiologic exam of the chest. Views: 1 view. COMPARISON: CT angio chest PE protcl [id number] 11/26/2024 4:23 PM FINDINGS: Lungs: Increased lung volumes. No lobar consolidation. Pleural spaces: No pleural effusion or pneumothorax. Heart/Mediastinum: Unremarkable. No cardiomegaly. Bones/joints: Unremarkable. XR/XR chest 1V portable [id number] IMPRESSION: As above.
[2024-11-28] MEDS: guaiFENesin 600 mg Tablet 1200 MG PO (17:05)
[2024-11-28] MEDS: enoxaparin 40 mg/0.4 mL Syringe SUBCUT (17:06)
[2024-11-28] MEDS: remdesivir 100 MG in sodium chloride 0.9% (100 ml) 100 ML IV (17:06)
[2024-11-28] MEDS: predniSONE 20 mg Tablet 40 MG PO (17:06)
[2024-11-28 18:53] LABS: MRSA PCR OZH (swab) NOT DETECTED (Not Detecte)
[2024-11-29] VITALS (10 sets, daily range): BP systolic 115–141; BP diastolic 70–81; PULSE 68–96; RESP 16–20; TEMP 36.7–37.1; O2SAT 88–99
[2024-11-29 05:22] LABS: Basophils % 0.1 %; Hematocrit 34.5 % (36-47); Lymphocytes # 1.1 10^3/uL (0.8-4.8); Lymphocytes % 7.8 %; Mean Corpuscular HGB Conc 34.5 g/dL (30-55); Mean Corpuscular Hemoglobin 35.2 pg (27-33); Mean Corpuscular Volume 102.1 fl (85-98); Mean Platelet Volume 8.9 fL (7.4-10.4); Monocytes # 0.8 10^3/uL (0.2-0.9); Monocytes % 5.3 %; Neutrophils # 12.21 10^3/uL (1.8-7.7); Neutrophils % 85.9 %; Nucleated Red Blood Cells % 0 %; Platelet Count 365 10^3/cmm (157-399); Red Blood Count 3.38 10^6/uL (3.85-5.65); Red Cell Distribution Width 11.3 % (12.1-15.1); White Blood Count 14.22 10^3/uL (3.29-11.43)
[2024-11-29 05:58] LABS: Alanine Aminotransferase 19 U/L (0-33); Albumin Level 3.2 g/dL (3.5-5.2); Alkaline Phosphatase 67 U/L (35-105); Anion Gap 9.6 (5-19); Aspartate Amino Transferase 19 U/L (0-32); Blood Urea Nitrogen 10 mg/dL (8-23); C Reactive Protein 13.8 mg/L (0.0-4.9); Calcium 8.6 mg/dL (8.5-10.5); Carbon Dioxide 38 mmol/L (22-29); Chloride 98 mmol/L (98-107); Creatinine Clr Calc Pharmacy 119.9507; Globulin 2.2 g/dL (1.3-4.6); Glomerular Filtration Rate 226.9 mL/min (90-130); Glucose 145 mg/dL (65-115); Osmolality Calculated 296 mOsm/kg (285-295); Potassium 3.6 mmol/L (3.5-5.1); Sodium 142 mmol/L (136-145); Total Bilirubin 0.2 mg/dL (0.15-1.2); Total Protein 5.4 g/dL (6.6-8.7)
[2024-11-29] MEDS: levoFLOXacin 750 mg Tablet PO (08:25)
[2024-11-29] MEDS: guaiFENesin 600 mg Tablet 1200 MG PO (08:25)
[2024-11-29] MEDS: pantoprazole DR 40 mg Tablet PO (08:25)
[2024-11-29] MEDS: dilTIAZem ER (24HR) 240 mg Capsule PO (08:25)
[2024-11-29] MEDS: predniSONE 20 mg Tablet 40 MG PO (08:25)
[2024-11-29] MEDS: aspirin 81 mg EC Tablet PO (08:26)
[2024-11-29] MEDS: FUROsemide 20 mg Tablet PO (08:26)
[2024-11-29] MEDS: levothyroxine 100 mcg Tablet PO (08:26)
[2024-11-29] MEDS: atorvastatin 40 mg Tablet 20 MG PO (08:26)
[2024-11-29] MEDS: benzonatate 100 mg Capsule PO (08:29)
[2024-11-29] MEDS: budesonide 0.5 mg/2 mL Neb INHALATION (09:26)
[2024-11-29] MEDS: ipratropium-albuterol 3 mL Neb INHALATION ×2 (09:26→14:13)
[2024-11-29] MEDS: remdesivir 100 MG in sodium chloride 0.9% (100 ml) 100 ML IV (13:57)
--- NOTE | 2024-11-29 15:45 | PM.DCS ---
Discharge Providers Date of Admission: 11/27/24 14:16 Date of Discharge: November 29, 2024 Attending Provider at Admission: Lucy Ward MD Attending Provider at Discharge: Lucy Ward MD Primary Care Provider: JUANPABLO Fuentes Diagnoses at Discharge Discharge Diagnosis (1) COVID-19: Status: Acute (2) Cor pulmonale: Status: Acute (3) Acute exacerbation of chronic obstructive pulmonary disease (COPD): Status: Acute Reason for Visit Reason for Visit: sob, low o2 Hospital Course Hospital Course Vanessa Jimeenz is a 59 year old female with past medical history of COPD, known pulmonary nodules, anxiety disorder presenting to the hospital for 1 week of increasing shortness of breath, increased cough, generalized bodyaches. She has been having significant wheezing which is not relieved by use of her typical medications at home. She was found to be COVID-positive. Significant wheezing noted to be persisting in the emergency room in spite of multiple treatments with albuterol and steroids. She was admitted to the hospital and started on treatment with IV remdesivir, high-dose steroids methylprednisolone 80 mg IV every 8 hours, [id number] nebulization with DuoNeb and budesonide and oral levofloxacin. She continued to have persistent wheezing over the first 2 days, however was feeling better today. She continues to have some scattered wheezing chiefly on her right lung but this does appear to be much better than before. Overall diagnosis is that of acute COPD exacerbation triggered by viral illness versus acute bronchitis from acute viral illness. Since she feels better today, on 2 L/min supplemental O2, she is being discharged with recommendations to continue high-dose steroid taper as instructed below, complete a course of oral levofloxacin over the next 2 days, continue to use her nebulizer with DuoNeb and budesonide over the next week.Home O2 eval was obtained. Typically patient uses only nighttime oxygen but is currently requiring continuous oxygen through the day. Physical Exam Narrative: General: No acute distress, AO x3 HEENT: PERRLA, pupils bilaterally equal and reactive, pallors not present Chest: Scattered wheezing right > left CVS: S1-S2 regular, no murmurs, no tachycardia, no gallops, no rubs Abdomen: Soft, nontender, no organomegaly, bowel sounds present Neuro: No focal deficits, no facial deformity, AO x3, power 5/5 in all limbs Discharge Data Studies Completed and Pending Completed Studies During Hospitalization Category Date Time Status CTA chest [CT angio chest PE protcl [id number]] Stat Cat Scan 11/26/24 16:08 Completed CXRP [XR chest 1V portable [id number]] Routine Exams 11/28/24 14:56 Completed XR chest 1V portable [id number] Stat Exams 11/26/24 13:23 Completed Radiology Impressions Chest CTA 11/26/24 16:08 IMPRESSION: 1. No CT findings of pulmonary embolus. 2. Mild arteriosclerosis thoracic aorta and mild coronary artery calcification. 3. Emphysematous change with mild interstitial scarring and component of bronchial wall thickening/bronchiectasis. Predominant linear type scarring right upper lobe with interval decrease and improvement in subsolid opacification in the right upper lobe from 2022 exam. Significant interval decrease in size or improvement in left upper lobe nodule from prior exam as well. 4. Mild ill-defined focal opacity posterior mid to lower right lung and small amount of ground-glass opacity posterior lower left lung. Consider superimposed infiltrate and consider follow-up with treatment, particularly mid to lower right lung. COMMENTS: The presence of pulmonary emphysema on CT is an independent risk factor for lung cancer. In the absence of a history or active diagnosis of lung cancer, it is recommended that this patient with emphysema be evaluated for enrollment in a low dose CT lung cancer screening program. Chest X-Ray 11/28/24 14:56 IMPRESSION: As above. Laboratory Results WBC 14.22 10^3/uL (3.29-11.43) H 11/29/24 04:56 RBC 3.38 10^6/uL (3.85-5.65) L 11/29/24 04:56 Hgb 11.90 g/dL (11.27-16.99) 11/29/24 04:56 Hct 34.5 % (36-47) L 11/29/24 04:56 MCV 102.1 fl (85-98) H 11/29/24 04:56 MCH 35.2 pg (27-33) H 11/29/24 04:56 MCHC 34.5 g/dL (30-55) 11/29/24 04:56 RDW 11.3 % (12.1-15.1) L 11/29/24 04:56 Plt Count 365 10^3/cmm (157-399) 11/29/24 04:56 MPV 8.9 fL (7.4-10.4) 11/29/24 04:56 Neut % (Auto) 85.9 % 11/29/24 04:56 Lymph % (Auto) 7.8 % 11/29/24 04:56 [place] % (Auto) 5.3 % 11/29/24 04:56 Eos % (Auto) 0.0 % 11/29/24 04:56 Baso % (Auto) 0.1 % 11/29/24 04:56 Neut # (Auto) 12.21 10^3/uL (1.8-7.7) H 11/29/24 04:56 Lymph # (Auto) 1.1 10^3/uL (0.8-4.8) 11/29/24 04:56 [place] # (Auto) 0.8 10^3/uL (0.2-0.9) 11/29/24 04:56 Eos # (Auto) 0.0 10^3/uL (0.0-0.8) 11/29/24 04:56 Baso # (Auto) 0.0 10^3/uL (0.0-0.1) 11/29/24 04:56 Nucleated RBC % (auto) 0 % 11/29/24 04:56 Nucleated RBCs # 0.0 /100WBC 11/29/24 04:56 D-Dimer 0.81 ug/mLFEU (0-0.59) H 11/26/24 13:52 Specimen Type Arterial 11/26/24 17:00 Sample Site Radial, right 11/26/24 17:00 ABG pH 7.47 (7.35-7.45) H 11/26/24 17:00 ABG pCO2 55.0 mmHg (35-45) H 11/26/24 17:00 ABG pO2 65.0 mmHg (80.0-100.0) L 11/26/24 17:00 ABG PO2/FiO2 Ratio 309 11/26/24 17:00 ABG HCO3 40.1 mmol/L (22-26) H 11/26/24 17:00 ABG Base Excess 13.9 mmol/L (-2.0-2.0) H 11/26/24 17:00 Fletcher Test Pos 11/26/24 17:00 Hematocrit 42.4 % (37-47) 11/26/24 17:00 O2 Delivery Device Room air 11/26/24 17:00 FiO2 21.0 % 11/26/24 17:00 Business Rules Developer ID [email or web address] 11/26/24 17:00 Sodium 142 mmol/L (136-145) 11/29/24 04:56 Potassium 3.6 mmol/L (3.5-5.1) 11/29/24 04:56 Chloride 98 mmol/L (98-107) 11/29/24 04:56 Carbon Dioxide 38 mmol/L (22-29) H 11/29/24 04:56 Anion Gap 9.6 (5-19) 11/29/24 04:56 BUN 10 mg/dL (8-23) 11/29/24 04:56 Creatinine 0.3 mg/dL (0.5-0.9) L 11/29/24 04:56 GFR Calculation 226.9 mL/min (90-130) H 11/29/24 04:56 Glucose 145 mg/dL (65-115) H 11/29/24 04:56 Calculated Osmolality 296 mOsm/kg (285-295) H 11/29/24 04:56 Calcium 8.6 mg/dL (8.5-10.5) 11/29/24 04:56 Total Bilirubin 0.2 mg/dL (0.15-1.2) 11/29/24 04:56 AST 19 U/L (0-32) 11/29/24 04:56 ALT 19 U/L (0-33) 11/29/24 04:56 Alkaline Phosphatase 67 U/L (35-105) 11/29/24 04:56 Troponin T Baseline 9 ng/L (0-10) 11/26/24 13:52 Troponin T 120 Minute 7.90 ng/L (0-10) 11/26/24 15:52 Delta Troponin T -1.10 ABS# (0-10) L 11/26/24 15:52 Troponin T Hi Sens 6Hr 6.82 ng/L (0-10) 11/26/24 20:04 Troponin T Hi Sens 6Hr Delta -2.18 ng/L (0-12) L 11/26/24 20:04 C-Reactive Protein 13.8 mg/L (0.0-4.9) H 11/29/24 04:56 NT-Pro-B Natriuret Pep 462 pg/mL (0-125) H 11/26/24 13:52 Total Protein 5.4 g/dL (6.6-8.7) L 11/29/24 04:56 Albumin 3.2 g/dL (3.5-5.2) L 11/29/24 04:56 Globulin 2.2 g/dL (1.3-4.6) 11/29/24 04:56 Nasal MRSA (PCR) Not detected (Not Detecte) 11/28/24 17:17 Coronavirus (PCR) Positive (Negative) A 11/26/24 13:45 Influenza A (PCR) Negative (Negative) 11/26/24 13:45 Influenza Type B (PCR) Negative (Negative) 11/26/24 13:45 RSV (PCR) Negative (Negative) 11/26/24 13:45 Vitals Last Vital Signs Temp 98.6 F 11/29/24 12:26 Pulse 84 11/29/24 14:00 Resp 20 H 11/29/24 14:00 BP 124/81 11/29/24 12:26 Pulse Ox 88 L 11/29/24 14:20 O2 Del Method Nasal Cannula 11/29/24 14:00 O2 Flow Rate 3 11/29/24 14:20 Discharge Plan Discharge Patient Disposition: Home Condition: Stable Prescriptions: New budesonide 0.5 mg/2 mL Suspension For Nebulization 0.5 mg inhalation BID.RESPIRATORY 15 Days Qty: 60 0RF levofloxacin 750 mg Tablet 750 mg PO DAILY 3 Days Qty: 3 0RF prednisone 10 mg tablet See Taper PO BID Qty: 42 0RF Taper: predniSONE 60-10 60 mg Daily for 2 Days and 0 Hour 50 mg Daily for 2 Days and 0 Hour 40 mg Daily for 2 Days and 0 Hour 30 mg Daily for 2 Days and 0 Hour 20 mg Daily for 2 Days and 0 Hour 10 mg Daily for 2 Days and 0 Hour pantoprazole [Protonix] 40 mg tablet,delayed release (DR/EC) 40 mg PO DAILY 28 Days Qty: 30 0RF Continued aspirin [Adult Aspirin Regimen] 81 mg tablet,delayed release (DR/EC) 81 mg PO DAILY B-complex with vitamin C Capsule 1 cap PO DAILY guaifenesin [Mucinex] 600 mg tablet extended release 12hr 600 mg PO BID PRN (Reason: Cough) raloxifene [Evista] 60 mg tablet 60 mg PO DAILY 90 Days Qty: 90 1RF pravastatin 20 mg tablet 20 mg PO DAILY 30 Days Qty: 30 5RF montelukast 10 mg tablet 10 mg PO DAILY 30 Days Qty: 30 5RF levothyroxine [Synthroid] 100 mcg tablet 100 mcg PO DAILY 30 Days Qty: 30 5RF furosemide 20 mg tablet 20 mg PO DAILY 30 Days Qty: 30 5RF Trelegy Ellipta 100-62.5-25 mcg blister with device 1 inh INHALATION DAILY 30 Days Qty: 28 5RF diltiazem HCl 240 mg capsule,extended release 24 hr 240 mg PO DAILY 30 Days Qty: 30 5RF albuterol sulfate [Ventolin HFA] 90 mcg/actuation HFA aerosol inhaler 2 puff INHALATION QID Changed ipratropium-albuterol 0.5 mg-3 mg(2.5 mg base)/3 mL solution for nebulization 3 ml inhalation Q4H Qty: 180 6RF Held prednisone 5 mg tablet 5 mg PO DAILY 90 Days Qty: 90 1RF Hold Instructions: Resume on 12/15/24. hold until you complete steroid taper Discharge Orders: Discharge Order (Routine); Ordered 11/29/24 Ordered By: Lucy Ward Referrals: Jo Hernandez FNP-C [Primary Care Provider] - 4-7 days (We have notified your physician's clinic of the need for a follow-up appointment to be scheduled. If you have not heard from them within the next 2 business days, please call them directly. ) Discharge Diet: Usual diet Discharge Activity: Resume usual activity Patient Instructions: Prednisone (By mouth), Levofloxacin (By mouth) (Levaquin, Levaquin Leva-kolby), Budesonide (By breathing), Pantoprazole (By mouth), Opioid Safety, Pneumonia Stoplight Discharge Attestations Time Spent in Discharge Care*: greater than 30 min Quality Metrics Clinical Quality Measures [ No reported AMI, CVA or VTE this stay] Coding Level of Care Code Acute Code for Chg Fwd Diagnoses COVID-19 U07.1 Cor pulmonale I27.81 Acute exacerbation of chronic obstructive pulmonary disease (COPD) J44.1
--- NOTE | 2024-11-29 16:40 | PC.NURSE ---
Dr. Ward called this nurse and stated that patient was discharging but wanted her to have 1830 dose of remdesivir early. After remdesivir was finished infusing, IV was removed. Discharge paperwork was discussed with patient. All questions were answered. Patient exited facility via wheelchair, escorted by this nurse and spouse at 1610.
== END 2024-11-29 16:10 | disposition home or self-care (01) | DRG 178 ==
LOC: ER 18:02 → MEDSURG 18:59
PROVIDERS: Emergency Medicine; Admitting Provider Student in an Organized Health Care Education/Training Program; Emergency Provider Emergency Medicine; PCP Nurse Practitioner Family; Visit Provider Student in an Organized Health Care Education/Training Program
DX: U07.1 COVID-19 (principal); J44.1 Chronic obstructive pulmonary disease with (acute) exacerbation; I27.81 Cor pulmonale (chronic); R91.8 Other nonspecific abnormal finding of lung field; J20.9 Acute bronchitis, unspecified; F17.210 Nicotine dependence, cigarettes, uncomplicated; E78.5 Hyperlipidemia, unspecified; I10 Essential (primary) hypertension; E03.9 Hypothyroidism, unspecified; Z79.82 Long term (current) use of aspirin
CPT/HCPCS: 36415; 36600; 71045; 71275; 80053; 82803; 83880; 84484; 85025; 85378; 86140; 87070; 87205; 87637; 93005; 94640; 94760; 96365; 96366; 96372; 96375; 99285; G0378; J0248; J1650; J2919; J7512; J7626; Q9967

== ENCOUNTER → 2024-12-07 11:37 | Outpatient (BNVA) | payer MEDICARE, MEDICAID, SELFPAY | PROVIDERS: PCP Nurse Practitioner Family; Visit Provider Clinical Nurse Specialist Adult Health | DX: E03.9 Hypothyroidism, unspecified (principal); E78.5 Hyperlipidemia, unspecified; J44.9 Chronic obstructive pulmonary disease, unspecified | CPT/HCPCS: 80053; 80061; 84443; 85025 ==

== ENCOUNTER → 2024-12-14 15:00 | Outpatient (BNVA) | payer MEDICARE, MEDICAID, SELFPAY | PROVIDERS: PCP Nurse Practitioner Family; Visit Provider Clinical Nurse Specialist Adult Health | DX: D72.829 Elevated white blood cell count, unspecified (principal) | CPT/HCPCS: 85025 ==

== ENCOUNTER 2024-12-18 13:03 | Outpatient (CLI) | payer MEDICARE, MEDICAID, SELFPAY ==
--- NOTE | 2024-12-18 13:00 | MR_ITS ---
WS: [id number] MRI ABDOMEN WITH AND WITHOUT CONTRAST. COMPARISON: PET/CT 05/18/2023, CT 03/08/2014 Multiplanar, multisequence imaging is performed with and without contrast. MultiHance 7 cc. Study is compromised by motion artifact. Patient was unable to breath-hold for several of the sequenc es. RIGHT kidney: Normal size kidney 11.8 cm in length. Moderate to severe dilatation of the RIGHT renal pelvis and calyces. Mild fullness of the renal pelvis in 2013 was thought to be due to an extrarenal pelvis as no significant calyceal dilatation was evident. There is a large extrarenal pelvis and the proximal ureter is dilated with rapid tapering. In the central renal pelvis is soft tissue slightly l obulated mass measuring 4.2 x 4.7 cm which is similar signal intensity as the adjacent renal cortex. There is no significant enhancement of this soft tissue in the renal pelvis. There is delayed excreti on from the kidney Normal size LEFT kidney. No cortical thinning or obstruction. No enhancing masses. Normal size liver and spleen. There is some limitations due to motion artifact. No ascites or adenopa thy is identified. The aorta is normal. Normally distended gallbladder. Variable signal in the gallbl adder may be motion or volume averaging. Very small bilateral pleural effusions. MR/MR abdomen wo/w con* [id number] IMPRESSION: 1. Moderate to severe RIGHT hydronephrosis with rapid tapering of the proximal ureter. Suspect high-grade ureteropelvic junction obstruction. Stricture or ne oplasm need to be considered. 2. Nonenhancing soft tissue mass in the RIGHT renal pelvis. This may be debris or sludge in the renal pelvis. There is no enhancement therefore less likely n eoplasm. Recommend evaluation by urology. 3. In 2013 there was a very slightly prominent renal pelvis thought to be an p arapelvic cysts. There was no significant obstruction at that time. Due to the progression of the obstruction there is probably a stricture of the proximal ur eter. The kidney maintains a normal size.
[2024-12-18 14:21] LABS: Basophils % 0.2 %; Eosinophils % 0.2 %; Lymphocytes # 1.1 10^3/uL (0.8-4.8); Lymphocytes % 10.4 %; Mean Corpuscular HGB Conc 34.6 g/dL (30-55); Mean Corpuscular Hemoglobin 34.3 pg (27-33); Mean Corpuscular Volume 99.2 fl (85-98); Mean Platelet Volume 8.7 fL (7.4-10.4); Monocytes # 0.6 10^3/uL (0.2-0.9); Monocytes % 5.7 %; Neutrophils # 8.84 10^3/uL (1.8-7.7); Neutrophils % 83.1 %; Nucleated Red Blood Cells % 0 %; Platelet Count 236 10^3/cmm (157-399); Red Blood Count 3.53 10^6/uL (3.85-5.65); Red Cell Distribution Width 12.8 % (12.1-15.1); White Blood Count 10.64 10^3/uL (3.29-11.43)
[2024-12-18] MEDS: gadobenate dimeglumine 20 mL vial 7 ML IV (15:20)
== END 2024-12-18 13:04 | disposition home or self-care (01) ==
PROVIDERS: PCP Nurse Practitioner Family; Visit Provider Clinical Nurse Specialist Adult Health
DX: N28.89 Other specified disorders of kidney and ureter (principal); D72.829 Elevated white blood cell count, unspecified; N13.30 Unspecified hydronephrosis; R93.421 Abnormal radiologic findings on diagnostic imaging of right kidney; N28.82 Megaloureter
CPT/HCPCS: 36415; 74183; 85025; A9577

== ENCOUNTER → 2025-03-24 14:23 | Outpatient (BNVA) | payer MEDICARE, MEDICAID, SELFPAY | PROVIDERS: PCP Clinical Nurse Specialist Adult Health; Visit Provider Internal Medicine | DX: Z01.818 Encounter for other preprocedural examination (principal); I10 Essential (primary) hypertension; E78.5 Hyperlipidemia, unspecified; J44.9 Chronic obstructive pulmonary disease, unspecified; I45.10 Unspecified right bundle-branch block; I27.81 Cor pulmonale (chronic); G47.30 Sleep apnea, unspecified; F17.210 Nicotine dependence, cigarettes, uncomplicated | CPT/HCPCS: 99214 ==

== ENCOUNTER 2025-04-01 12:38 | Outpatient (CLI) | payer MEDICARE, MEDICAID, SELFPAY ==
[2025-04-01 13:02] VITALS: BMI 14.6
--- NOTE | 2025-04-01 13:08 | USCV_ITS ---
Dobutamine Stress Echo Vanessa Jimenez Age: 59 Gender: F : 1965 Exam Date: 04/01/2025 13:45 Ordering Phys: Brock Godinez M.D ([email or web address]) Technologist: Exam Location: [facility] [place] Indication: CP, SOB Rhythm: Sinus Patient History: HTN, hyperlipidemia, smoker Cardiac Medications: diltizem, statin Medications in past 24 hours: none Contrast: Total Dose (mL): Stress Results Protocol: Pharmacologic Peak Dose (???g/kg/min): 50 Duration (min:sec): 15:35 Atropine:(mg) 0.4 Target HR: 136 Double Product: [id number] Resting HR: 92 Resting BP: 153 / 78 Peak HR: 160 Peak BP: 181 / 78 Max Predicted HR: 160 100 % Max Predicted HR Stress Summary: The hemodynamic response to stress was normal. The patient's target heart rate was achieved. BP Response: Normal Reason for Termination: The patients target heart rate was achieved, Protocol complete, Exceeded target heart rate (85% max predicted) Cardiac Symptoms: None ECG Analysis Resting EKG: Stress EKG: Arrhythmia: MEASUREMENTS (Male/Female) Normal Values FINDINGS Baseline: Left ventricular ejection fraction appears moderately reduced 35 to 40%, there appeared to be septal bounce which could be secondary to interventricular conduction delay or pacemaker. At low dose dobutamine: No new wall motion abnormality was noted At peak dose dobutamine: Augmentation of the cavity was increased, ejection fraction improved, there is no new wall motion abnormality except what is present at the baseline is noted Recovery: Uneventful CONCLUSIONS Echocardiographic portion of the stress test is not suggestive of ischemia however because of baseline wall motion abnormality specificity and sensitivity of the echo portion of the stress test will be low. EKG segment will be documented separately Nancy Patel MD (Electronically Signed) Final Date: 06 Apr 2025 15:39 S
--- NOTE | 2025-04-01 13:08 | ECG_ITS ---
[facility] Test Date: 2025-04-01 Pat Name: Vanessa Jimenez Department: Room: Gender: Female Director Of Integrated Marketing: : 1965 Requested By: Brock Godinez Order Number: [id number] Dorene MD: ANNA CHILDS Interpretive Statements Lung unchanged pre/post procedure; Intraprocedure shortess of breath; Symptoms resoled by discharge Dobutamine stress test: The patient was infused with dobutamine as per protocol. Baseline heart rate was 92 beats per minute. Baseline blood pressure was 153/78 millimeters of mercury. Target heart rate was 160 beats per minute. Maximum heart rate achieved was 160, which was 100% of the target heart rate. Maximum blood pressure was 181/78 millimeters of mercury. Total stress time with infusion of dobutamine was 15 minutes, maximum METs achieved was 1, maximum VO2 was 3.5. The reason for ending the test was completion of the protocol. The patient complained of shortness of breath during the stress test, which then resolved at the end of the test. ELECTROCARDIOGRAM: BASELINE: Showed sinus rhythm, normal axis, left bundle branch Dobutamine infusion at low medium and high dose: No significant ST-T changes suggestive of ischemia noted. RECOVERY: During the recovery period, heart rate dropped appropriately. No significant ST-T changes in the recovery suggestive of ischemia noted. CONCLUSION: 1. Exercise capacity cannot be determined due to dobutamine infusion and not to exercise on the treadmill. 2. Heart rate response was tachycardic. 3. Blood pressure response was hypertensive. 4. Symptoms not suggestive of ischemia but cannot be determined accurate due to underlying bundle branch block, will refer to imaging 5. Electrocardiogram portion of the stress test was not suggestive of ischemia based upon the data but given the underlying EKG abnormality sensitivity and specificity of the EKG portion of the stress test will be low yield, imaging data will be presented separately. . Electronically Signed On 04-11-2025 16:42:55 CDT by ANNA CHILDS [email or web address]
--- NOTE | 2025-04-01 13:20 | USCV_ITS ---
Vanessa Jimenez Age: 59 Gender: F : 1965 Exam Date: 04/01/2025 13:32 Ordering Phys: Brock Godinez M.D ([email or web address]) Technologist: Exam Location: [facility] [place] Indication: cp BP: 123 / 754 HR: 100 Rhythm: Sinus Technical Quality: Adequate MEASUREMENTS (Male / Female) Normal Values 2D ECHO LV Diastolic Diameter PLAX 5.1 cm 4.2 - 5.9 / 3.9 - 5.3 cm IVS Diastolic Thickness 1.1 cm 0.6 - 1.0 / 0.6 - 0.9 cm IVS Systolic Thickness 1.3 cm LVPW Diastolic Thickness 1.3 cm 0.6 - 1.0 / 0.6 - 0.9 cm LVPW Systolic Thickness 1.8 cm LVOT Diameter 2.0 cm LV Ejection Fraction 2D Teich 51.0 % LV Ejection Fraction MOD 4C 39.8 % LV Ejection Fraction MOD 2C 54.6 % LV Ejection Fraction 2C AL 56.7 % LA Diameter 2.9 cm RA Systolic Volume 4C AL 23.1 ml RA Systolic Volume 4C MOD 20.2 ml IVC Diameter 1.8 cm M-MODE LA Ao Ratio MM 1.1 AV Cusp Separation MM 1.8 cm DOPPLER AV Peak Velocity 137.7 cm/s MV Peak Velocity 117.0 cm/s MV Area PHT 10.7 cm squared Mitral E to A Ratio 3.0 TV Peak Velocity 164.5 cm/s TR Peak Velocity 179.0 cm/s TR Peak Gradient 12.8 mmHg TV Peak E Velocity 116.0 cm/s PV Peak Velocity 189.0 cm/s FINDINGS Left Ventricle Moderately increased left ventricular cavity size. Moderately decreased left ventricular systolic function. Left ventricular ejection fraction is estimated at 40 %. Global left ventricular hypokinesis. Grade III/IV diastolic dysfunction (restrictive filling pattern), severely elevated filling pressures. Right Ventricle The right ventricle is normal in size and function. Right Atrium The right atrium is normal in size. Left Atrium The left atrium is normal in size. Mitral Valve Thickened mitral valve. No mitral valve stenosis. Trace mitral valve regurgitation. Aortic Valve Moderate aortic valve calcification. No aortic valve stenosis. Trace aortic valve regurgitation. Tricuspid Valve Structurally normal tricuspid valve without significant stenosis or regurgitation. Pulmonary artery systolic pressure is normal. Pulmonic Valve Structurally normal pulmonic valve without significant stenosis. There is no pulmonic regurgitation. Pericardium Normal pericardium without effusion. Aorta Normal ascending aorta dimension. IVC The inferior vena cava appears normal. CONCLUSIONS Moderately increased left ventricular cavity size. Moderately decreased left ventricular systolic function. Left ventricular ejection fraction is estimated at 40 %. Global left ventricular hypokinesis. Grade III/IV diastolic dysfunction (restrictive filling pattern), severely elevated filling pressures. Moderate aortic valve calcification. No aortic valve stenosis. Trace aortic valve regurgitation. Thickened mitral valve. No mitral valve stenosis. Trace mitral valve regurgitation. There is no pericardial effusion. Right atrial pressure is around 5 mm of mercury. Nancy Patel MD (Electronically Signed) Final Date: 02 Apr 2025 12:37 S
[2025-04-01] MEDS: DOBUTtamine 200 MG in sodium chloride 0.9% 34 ML 5.44 MG IV (14:01)
[2025-04-01] MEDS: atropine 0.1 mg/mL Syr 10 mL 0.5 MG IVP (14:16)
[2025-04-01] MEDS: metoprolol tartrate 1 mg/1 mL SDV 5 mL 5 MG IVP (14:25)
[2025-04-01 14:44] VITALS: BP 113/70; PULSE 103
== END 2025-04-01 12:39 | disposition home or self-care (01) ==
LOC: CDL 12:53
PROVIDERS: PCP Clinical Nurse Specialist Adult Health; Visit Provider Internal Medicine
DX: R07.9 Chest pain, unspecified (principal); R06.02 Shortness of breath; I05.9 Rheumatic mitral valve disease, unspecified; I35.8 Other nonrheumatic aortic valve disorders; R00.0 Tachycardia, unspecified; R94.39 Abnormal result of other cardiovascular function study; I45.10 Unspecified right bundle-branch block
CPT/HCPCS: 36415; 93017; 93306; 93350; 96374; J0461; J1250; J3490; J7050

== ENCOUNTER 2025-05-12 14:18 | Outpatient (CLI) | payer MEDICARE, MEDICAID, SELFPAY ==
--- NOTE | 2025-05-12 14:21 | CTR_ITS ---
PROCEDURE INFORMATION: Exam: CT Abdomen And Pelvis Without And With Contrast, Urography Exam date and time: 05/12/2025 4:11 PM Age: 60 years old Clinical indication: Abnormal findings; Abnormal radiologic finding of the abdomen; Radiologic exam and body structure: MR abdomen and US abdomen; Prior surgery; Surgery date: 6+ months; Surgery type: Appy; Gross hematuria/ureteropelvic junction obstruction TECHNIQUE: Imaging protocol: Computed tomography of the abdomen and pelvis without and with intravenous contrast. Exam focused on the kidneys and ureters. 3D rendering (Not supervised by radiologist): MIP and/or 3D reconstructed images were created by the technologist. Radiation optimization: All CT scans at this facility use at least one of these dose optimization techniques: automated exposure control; mA and/or kV adjustment per patient size (includes targeted exams where dose is matched to clinical indication); or iterative reconstruction. Contrast material: OMNIPAQUE 350; Contrast volume: 100 ml; Contrast route: INTRAVENOUS (IV); COMPARISON: MR abdomen wo/w con* [id number] 12/18/2024 1:27 PM RADIATION DOSE METRICS: Total DLP (mGy-cm): 1008.85 FINDINGS: Liver: Normal. No mass. Gallbladder and biliary ducts: Normal. No calcified stones. No ductal dilation. Pancreas: Normal. No ductal dilation. Spleen: Normal. No splenomegaly. Adrenal glands: Normal. No mass. Kidneys and ureters: Chronic moderate to severe right UPJ obstruction. Increased size of irregular mass in the right renal pelvis now measuring 5.3 x 4.0 x 5.5 cm and demonstrating mild contrast enhancement. Slightly prominent left extrarenal pelvis without evidence of obstruction. Stomach and bowel: Moderately extensive colonic diverticulosis without evidence of diverticulitis. Mildly dilated loop of apparent small bowel in the left mid abdomen with fecalization of contents. No discrete transition point to suggest high-grade obstruction. Appendix: No evidence of appendicitis. Intraperitoneal space: Unremarkable. No free air. No significant fluid collection. Vasculature: Aortoiliac atherosclerotic disease is seen without evidence of aneurysm. Lymph nodes: Unremarkable. No enlarged lymph nodes. Urinary bladder: Unremarkable. Reproductive: Unremarkable. Bones/joints: Unremarkable. No acute fracture. No dislocation. Soft tissues: Unremarkable. CT/CT abdomen pelvis wo/w [id number] IMPRESSION: 1. Chronic moderate to severe right UPJ obstruction. 2. Increased size of irregular mass in the right renal pelvis now measuring 5.3 x 4.0 x 5.5 cm and demonstrating mild contrast enhancement. This is highly suspicious for malignancy such as transitional cell carcinoma. 3. Mildly dilated loop of apparent small bowel in the left mid abdomen with fecalization of contents. No discrete transition point to suggest high-grade obstruction. Correlate for acute GI symptoms.
[2025-05-12 15:40] LABS: Blood Urea Nitrogen 7 mg/dL (8-23); Glomerular Filtration Rate 162.3 mL/min (90-130)
[2025-05-12] MEDS: iohexol 350 mg/mL 500 mL Btl (per mL) IV (16:18)
== END 2025-05-12 14:19 | disposition home or self-care (01) ==
PROVIDERS: Radiology Diagnostic Radiology; PCP Clinical Nurse Specialist Adult Health; Visit Provider Urology
DX: N13.5 Crossing vessel and stricture of ureter without hydronephrosis (principal); R31.0 Gross hematuria; R19.09 Other intra-abdominal and pelvic swelling, mass and lump
CPT/HCPCS: 74178; 82565; 84520

== ENCOUNTER → 2025-11-11 11:29 | Outpatient (BNVA) | payer MEDICARE, MEDICAID, SELFPAY | PROVIDERS: PCP Clinical Nurse Specialist Adult Health; Visit Provider Clinical Nurse Specialist Adult Health | DX: Z01.89 Encounter for other specified special examinations (principal); N28.89 Other specified disorders of kidney and ureter; J44.1 Chronic obstructive pulmonary disease with (acute) exacerbation; E78.5 Hyperlipidemia, unspecified; I10 Essential (primary) hypertension; E03.9 Hypothyroidism, unspecified | CPT/HCPCS: 80053; 80061; 82306; 84443; 85025 ==